=== PATIENT | male | born 1975 | race Caucasian/White ===

== ENCOUNTER 2021-07-01 11:23 | Emergency (ER) | payer MEDICAID, SELFPAY ==
[2021-07-01 11:24] VITALS: BP 132/93; PULSE 82; RESP 16; TEMP 36.7; TEMP 36.8; O2SAT 98; BMI 33.4
--- NOTE | 2021-07-01 11:38 | XR_ITS ---
FINAL REPORT CLINICAL HISTORY: INJURY TO HEEL FINDINGS: 3 views of the left foot were obtained. There is no acute fracture. There is dorsal dislocation of the 3rd digit at the MCP joint. There is hallux valgus deformity. The joint spaces are intact. The soft tissues are unremarkable. IMPRESSION: Dorsal dislocation of the 3rd digit at the MCP joint. Reviewed, Interpreted and Dictated by Chris Craig III, MD Transcribed by Hosea Glez Authenticated by Chris Craig III, MD on 07/01/2021 01:01:01 PM [facility]
--- NOTE | 2021-07-01 12:47 | HMH.EDUTC ---
[facility] [place] Disposition Condition on Discharge: Good Time of Disposition: 14:01 Clinical Impression: Dislocation of toe of left foot Qualifiers: Encounter type: initial encounter Qualified Code(s): S93.105A - Unspecified dislocation of left toe(s), initial encounter Disposition: Home, Self-Care Instructions: How To Perform RICE (Rest, Ice, Compress, Elevate), Dislocated Toe Additional Instructions: *weight bearing as tolerated *RICE, Rest the extremity, Ice 15-20 minutes 3-4 times daily, Compress- wear the shruthi wrap as discussed as much as possible to help reduce swelling and pain, Elevate the extremity when at rest *Post op shoe is for support and help control swelling, use it except in the shower. Be sure that is not to tight but not to loose either *Elevate when resting *Ibuprofen as directed on package every 6-8 hours as needed for pain an inflammation. If need something more can take Tylenol in between doses of Ibuprofen to help Immediately follow up with your family doctor for new or worsening of symptoms, or no noticeable improvement over the next 3-5 days Referrals: Alva Rosenberg MD [Primary Care Provider] - As needed Sahara Haider DPM [Staff Physician] - Medical Decision Making - Abebe Inquiry Pt receiving controlled substance: No Abebe was queried for this patient: No - Radiology Data #1 Image(s): Foot/Toes Image Reviewed: Yes I have reviewed radiologist's interpretation #2 Image(s): Foot/Toes (post reduction xray) Image Reviewed: Yes I reviewed the patient's radiology image Preliminary Findings: No Fracture Seen Vital Signs: 07/01/21 11:24 Temperature 98.3 F Temperature Source Oral Pulse Rate [Right Radial] 82 Respiratory Rate 16 Blood Pressure [Right Arm] 132/93 H Blood Pressure Mean [Right Arm] 106 Blood Pressure Source [Right Arm] Automatic Cuff Blood Pressure Position [Right Arm] Sitting 02 Sat by Pulse Oximetry 98 Oxygen Delivery Method Room Air Orders (Tests/Meds): ED MEDICATIONS Discontinued Medications Generic Name Dose Route Start Last Admin Trade Name Freq PRN Reason Stop Dose Admin Ketorolac Tromethamine 60 mg 07/01/21 13:14 07/01/21 13:17 Ketorolac 60mg/2ml Vial IM 07/01/21 13:15 60 mg ONCE ONE Administration ORDERS Category Date Time Status XR foot LT min 3V Stat Exams 07/01/21 13:12 Taken - Radiology Data #1 IMPRESSION: Dorsal dislocation of the 3rd digit at the MCP joint. (Babita Rodas) #2 reduced dorsal dislocation of 3rd digit at the MCP joint (Babita Rodas) [facility] [place] HPI - General Mode of Arrival: Wheelchair Source of Information: Patient Limitations: No Limitations Description of Symptoms (Recalled from Triage Doc. by RN): LEFT LATERAL FOOT PAIN AFTER STEPPING WRONG OUT OF DITCH HEENT Symptoms (Recalled from RN notes): No Resp Symptoms (Recalled from RN notes): No Skin Symptoms (Recalled from RN notes): No MS Symptoms (Recalled from RN notes): Yes Functional Status (Recalled from RN notes): N/A - History of Present Illness Provider Complaint: Patient states that he was stepping out of ditch when he bent his toes back States that ever since he has been having pain around the base of his toes and hurts when he walks or tries to bend them so he came in - Worker's Comp Is this a Worker's Comp case?: No Is this an [facility] Worker's Comp?: No Is this a [facility] Worker's Comp?: No - General Chief complaint: Extremity Injury, Lower Stated complaint: AO 06/30 lt ankle injury Time Seen by Provider: 07/01/21 12:47 - Related Data Allergies Allergy/AdvReac Type Severity Reaction Status Date / Time No Known Allergies Allergy Verified 07/01/21 13:14 [facility] History - Hepatitis A Screen Drug use history?: No High risk sexual behaviors?: No History of sexually transmitted infection?: No Currently employed?: No Childcare worker?: No Do you have indoor plumbing?: Yes Do you have electricity?: Yes I have reviewed the ghazala
--- NOTE | 2021-07-01 13:12 | XR_ITS ---
FINAL REPORT CLINICAL HISTORY: POST REDUCTION COMPARISON: Earlier the same day FINDINGS: LEFT FOOT Three views of the left foot demonstrate no acute fracture. There has been interval reduction of the 3rd metatarsal-phalangeal joint dislocation. There is hallux valgus deformity. The visualized joint spaces are normally aligned. The soft tissues are unremarkable. IMPRESSION: Interval reduction of 3rd metatarsophalangeal joint dislocation. Hallux valgus deformity. Reviewed, Interpreted and Dictated by Chris Craig III, MD Transcribed by Kami Fried Authenticated by Chris Craig III, MD on 07/01/2021 03:00:55 PM [facility]
[2021-07-01 14:06] VITALS: BP 132/93; PULSE 82; RESP 16; TEMP 36.8; O2SAT 98
== END 2021-07-01 14:06 | disposition home or self-care (01) ==
LOC: ER 11:36 → UTC 11:37
PROVIDERS: Emergency Provider Nurse Practitioner; PCP Nurse Practitioner
DX: S93.105A Unspecified dislocation of left toe(s), initial encounter (principal)
CPT/HCPCS: 28630; 73630; 96372; 99213; G0463

== ENCOUNTER → 2022-11-01 10:13 | Outpatient (CLI) | payer MEDICAID, SELFPAY ==
--- NOTE | 2022-11-01 10:19 | XR_ITS ---
FINAL REPORT CLINICAL HISTORY: Right knee pain COMPARISON: None FINDINGS: RIGHT KNEE 3 views of the right knee were obtained. There is no acute fracture or dislocation. Visualized joint spaces are normally aligned. Soft tissues are unremarkable. IMPRESSION: No acute bony abnormality. Reviewed, Interpreted and Dictated by Dany Mohamud MD Transcribed by Sweta Rosales Authenticated and [facility]
--- NOTE | 2022-11-01 10:19 | XR_ITS ---
FINAL REPORT CLINICAL HISTORY: Left foot pain COMPARISON: 07/01/2021 FINDINGS: LEFT FOOT Three views of the left foot demonstrate no acute fracture or dislocation. There is moderate hallux valgus deformity. The visualized joint spaces are normally aligned. The soft tissues are unremarkable. IMPRESSION: No acute bony abnormality. Reviewed, Interpreted and Dictated by Dany Mohamud MD Transcribed by Sweta Rosales Authenticated and [facility]
== END ==
PROVIDERS: Visit Provider Orthopaedic Surgery
DX: M79.672 Pain in left foot (principal); S93.105A Unspecified dislocation of left toe(s), initial encounter; M25.561 Pain in right knee
CPT/HCPCS: 73562; 73630

== ENCOUNTER → 2022-11-21 15:54 | Outpatient (CLI) | payer MEDICAID, SELFPAY ==
--- NOTE | 2022-11-21 15:55 | MR_ITS ---
PROCEDURE INFORMATION: Exam: MR Right Lower Extremity Joint Without Contrast, Knee Exam date and time: 11/21/2022 4:14 PM Age: 47 years old Clinical indication: Pain; Knee; Right; Additional info: RT knee pain. Pain around patella. Knee instability TECHNIQUE: Imaging protocol: Magnetic resonance imaging of the right lower extremity joint without contrast. Exam focused on the knee. COMPARISON: CR XR KNEE RT 3V 11/01/2022 10:26 AM FINDINGS: Bones/joints: A moderate joint effusion involves the knee. There is no acute fracture or dislocation. No aggressive bone lesions are present. Subchondral cystic change/edema involving the far medial aspect of the medial femoral condyle suggests overlying full-thickness cartilage loss or fissuring that is beyond the resolution of this study (series 8/image 14). There is additional grade II chondromalacia involving the medial femoral condyle. No significant cartilage damage involves the lateral compartment. There is grade I (out of IV) chondromalacia involving the patellofemoral joint. Medial meniscus: A horizontal tear involves the posterior horn of the medial meniscus. The tear extends to the inferior meniscal surface and extends into the posterior aspect of the body. Lateral meniscus: The lateral meniscus shows no evidence of tear. Anterior cruciate ligament: Increased T2 signal within the anterior cruciate ligament is consistent with mucinous degeneration. The anterior cruciate ligament fibers are intact. Posterior cruciate ligament: The posterior cruciate ligament is intact. Medial capsule and supporting structures: The medial collateral ligament is intact. Lateral capsule and supporting structures: The lateral collateral ligament complex is intact. Extensor mechanism of knee: Mild tendinosis involves the distal quadriceps tendon. There is no tear or significant tendinosis involving the patellar tendon. Soft tissues: A mild amount of edema involves the anterior knee subcutaneous fat. IMPRESSION: 1. Horizontal tear of the medial meniscus posterior horn. 2. 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 3. Grade I chondromalacia patella. 4. Mild tendinosis of the distal quadriceps tendon.
== END ==
PROVIDERS: PCP Orthopaedic Surgery; Visit Provider Orthopaedic Surgery
DX: M23.91 Unspecified internal derangement of right knee (principal); M25.561 Pain in right knee
CPT/HCPCS: 73721

== ENCOUNTER 2023-03-15 11:52 | Outpatient (CLI) | payer MEDICAID, SELFPAY ==
--- NOTE | 2023-03-15 11:53 | ECG_ITS ---
APPROVED REPORT Exam: Resting ECG HR:74 bpm ECG Measurements Heart Rate 74 AXES WI 189 P 38 QRSd 76 QRS 19 QT 361 T 48 QTc 389 Conclusion SINUS RHYTHM NORMAL ECG UNCONFIRMED REPORT Electronically signed by : Dimitri Villanueva MD 03/16/2023 20:33:21
--- NOTE | 2023-03-15 12:12 | XR_ITS ---
FINAL REPORT CLINICAL HISTORY: Pre Op, CURRENT TOBACCO USER, SOA WITH ACTIVITY COMPARISON: None FINDINGS: Two views of the chest were obtained. The heart size and pulmonary vascularity are within normal limits. The mediastinum is normal. No acute pulmonary abnormality is identified. There is no pneumothorax. The bony thorax is intact. IMPRESSION: No active cardiopulmonary disease. Reviewed, Interpreted and Dictated by Chris Craig III, MD Transcribed by Jocelyn Boudreaux Authenticated and . [facility]
[2023-03-15 12:48] LABS: Basophils # 0.1 K/mm3 (0-0.2); Eosinophils # 0.4 K/mm3 (0.0-0.4); Eosinophils % 3.9 % (0.1-12.0); Hematocrit 49.2 % (42.0-52.0); Hemoglobin 16.6 g/dL (14.1-18.0); Lymphocytes # 3.4 K/mm3 (0.7-4.5); Lymphocytes % 32.1 % (10-50); Mean Corpuscular HGB Conc 33.8 g/dL (31.8-35.4); Mean Corpuscular Hemoglobin 30.7 pg (27.0-31.2); Mean Corpuscular Volume 90.9 fl (80-94); Mean Platelet Volume 7.4 fl (7.4-10.4); Monocytes # 0.8 K/mm3 (0.1-1.0); Monocytes % 7.3 % (1.7-9.3); Neutrophils # 5.9 K/mm3 (1.8-7.8); Neutrophils % 55.7 % (37.0-80.0); Platelet Count 325 K/mm3 (142-424); Red Blood Count 5.41 M/mm3 (4.60-6.20); Red Cell Distribution Width 13.4 % (11.5-17.5); White Blood Count 10.6 K/mm3 (4.8-10.8)
[2023-03-15 13:26] LABS: Alanine Aminotransferase 33 U/L (12-78); Albumin Level 4.3 g/dl (3.5-5.0); Albumin/Globulin Ratio 1.7 (1.1-1.8); Alkaline Phosphatase 64 U/L (38-126); Anion Gap 9.4 mEq/L (5-15); Aspartate Amino Transferase 35 U/L (17-59); Bilirubin,Total 0.5 mg/dl (0.2-1.3); Blood Urea Nitrogen 7 mg/dl (9-20); Calcium 8.7 mg/dl (8.4-10.2); Carbon Dioxide 30 mmol/L (22.0-30.0); Chloride 100 mmol/L (98-107); Estimated Glomerular Filt Rate 89 ml/min (>60); GFR (African American) 108 ML/MIN (>60); Globulin 2.5 g/dL (1.3-3.2); Glucose 85 mg/dl (74-100); Potassium 4.4 mmoL/L (3.5-5.1); Sodium 135 mmol/L (136-145); Total Protein,Serum 6.8 g/dl (6.3-8.2)
== END 2023-03-15 23:59 ==
LOC: LAB 11:53
PROVIDERS: PCP Nurse Practitioner; Visit Provider Orthopaedic Surgery
DX: S83.241A Other tear of medial meniscus, current injury, right knee, initial encounter (principal); Z01.818 Encounter for other preprocedural examination; Y99.9 Unspecified external cause status
CPT/HCPCS: 36415; 71046; 80053; 85025; 93005

== ENCOUNTER 2023-03-27 07:30 | Day surgery (SDC) | payer MEDICAID, SELFPAY ==
[2023-03-23 14:09] VITALS: BMI 33.4
[2023-03-27] VITALS (9 sets, daily range): BP systolic 111–144; BP diastolic 76–94; PULSE 82–90; RESP 15–19; TEMP 36.1–36.3; O2SAT 90–99
[2023-03-27] MEDS: LACTATED RINGERS 1000ML 1,000 ML 25 ML IV (07:44)
--- NOTE | 2023-03-27 08:11 | EXP.ANES.CKL ---
[facility] Disclaimer: The information contained in this section may have been updated after the patient was seen, as this information can be updated by other users. Medical History No significant past medical history Surgical History No pertinent past surgical history Family History (Updated 03/27/23 @ 07:47 by Lissette Rapp RN) Other Family history of diabetes mellitus type II Social History Smoking Status: Never smoker alcohol intake: never substance use type: denies use current occupational status: employed Travel in the last 8 weeks: None [facility] Anesthesia Checklist Patient Identification Patient Identification: Arm Band, Family and Verbal (Name & ) Structural Data Admitted From: Home Planned Operative Procedure/s: Right Knee scope w/partial medial meniscectomy Consent for Planned Operative Procedure(s) Verified: Yes Verified Documents: Surgical Consent and History and Physical NPO Status Verified Time NPO: 22:00 Chart Verification Results Verified: CBC, BMP, ECG and Chest Xray Additional verifications Patient : No Anesthesia Reactions: No Hx Blood Transfusions: No Blood Transfusion Reaction: No Cardiovascular Assessment Heart Sounds: S1 & S2 Pulse Rhythm: Irregular Airway Assessment Mallampati Score:: Class III (Very small mouth opening) C-Spine Mobility Assessed: Yes (FROM) TMJ Mobility Assessed: Yes Dentition: Dentures-good fit Neurological Assessment Level of Consciousness: Awake, Alert, Appropriate and Follows Commands Hx Seizures: No Numbness or tingling in extremities: No Anesthesia Plan Anesthesia Risk discussed: Yes Anesthesia Plan: Verified ASA Class: II Anesthesia Type: General
[2023-03-27] MEDS: CEFAZOLIN SODIUM 2 GM in 0.9 % SODIUM CHLORIDE 100 ML IV (09:06)
[2023-03-27] MEDS: BUPIVACAINE 0.25% 30ML VIAL 75 MG (09:35)
[2023-03-27] MEDS: RINGERS SOLUTION,LACTATED 6,000 ML 200 ML IR (09:36)
--- NOTE | 2023-03-27 09:56 | P.OP_ITS ---
Date of procedure: 03/27/23 Pre-op Diagnosis:: Right knee medial meniscus tear Post-op Diagnosis:: Right knee medial meniscus tear with area of grade III chondromalacia medial femoral condyle Right knee large medial engaging plica Procedure performed:: Right knee arthroscopy with partial medial meniscectomy Right knee arthroscopy with debridement and excision of medial engaging plica Surgeon:: Romie Mckinnon DO TOOL DESIGNER APPRENTICE:: Other Anesthesia: GETA Estimated blood loss (mL): 0 Operative findings:: Large medial engaging plica. Macerated tear posterior horn medial meniscus. Linear stripe of grade III chondromalacia medial femoral condyle adjacent to and corresponding to site of meniscus tear Operative note:: Patient was identified preoperatively. Right knee marked with yes and my initials. Transported operative suite. Placed upon the operating bed. General anesthesia administered airway secured. Right lower extremity prepped and draped normal sterile fashion. Once prepped and draped final operative timeout performed to identify proper patient procedure and extremity. Everyone involved the case agreed. No counter indications to beginning. Did receive preoperative antibiotics. Marking pen was used to veronika the bony landmarks of the knee and standard portal sites. Esmarch was used to exsanguinate the extremity and pneumatic tourniquet was inflated to 300 mmHg. Skin knife was used to incise standard anterior lateral portal. Blunt with trocar was placed in the patellofemoral joint. This was exchanged with a camera. I swept directly into the medial joint line upon sweep into the medial joint line there was a large engaging inflamed plica. I swept into the medial joint line within the medial joint line anterior medial portal was made under direct visualization of the help with a 18-gauge spinal needle. This was exchanged with a probe. There is macerated tearing of the posterior horn of the medial meniscus. There is also a concomitant linear area of rubbing which cause grade III chondromalacia of the medial femoral condyle corresponding to the area of meniscus tear. Using combination of straight biter and sucker shaver partial medial meniscectomy was performed back to stable rim. Attention was brought to the intercondylar notch the ACL was seen and intact. Attention brought to the lateral joint line within the lateral joint line the lateral cartilage was pristine. The lateral meniscus was pristine. Tensions brought back in the patellofemoral joint within the patellofemoral joint the camera was then placed in the patellofemoral joint along with a shaver were excision of the medial engaging plica was performed. Camera was then removed the joint was drained local anesthesia infiltrated the portal sites. Skin closed with nylon stitch sterile dressing placed from toe to thigh patient waken anesthesia taken recovery in stable condition. Tourniquet time (min): 13 Condition: stable Disposition: PACU Complications:: None apparent
--- NOTE | 2023-03-27 10:07 | EXP.ANES.I ---
[facility] Anesthesia Record Part I Anesthesia Record I Intake, IV Amount: 500 Hydration: Adequate Estimated blood loss (mL): 10 Urine output (mL): 0 Blood Products used (#): none Blood Pressure: 122/76 SaO2: 90 Pulse Rate: 90 Airway Patency: Patent Respiratory Rate: 18 Temperature: 97.0 F Patient is:: Drowsy, Nasal O2 (4L/min to oral airway), Oral/Nasal airway (#9.0) and Stable Stable to PACU at:: 10:01
--- NOTE | 2023-03-28 08:02 | EXP.ANES.II ---
[facility] Anesthesia Record Part II Anesthesia Record Part II Discharge Time: 10:26 Destination: Surgical Day Care (OP Surgery) PACU nurse assessment reviewed?: Yes Patient Condition:: Good Anesthesia Complications:: None Swallowing reflex intact?: Yes Airway Patency: Patent Cyanosis?: No Blood Pressure: 129/88 SaO2: 99 Respiratory Rate: 17 Pulse Rate: 82 Temperature: 97.4 F Mental Status: Alert & Oriented Pain level:: 0 Nausea and/or vomitting:: None Intake, IV Amount: 0 Hydration: Adequate
[2023-03-28 08:03] VITALS: BP 129/88; PULSE 82; RESP 17; TEMP 36.3; O2SAT 99
== END 2023-03-27 10:53 | disposition home or self-care (01) ==
PROVIDERS: PCP Nurse Practitioner; Visit Provider Orthopaedic Surgery
PROC: (CPT 29870; principal; 2023-03-27 09:15)
DX: S83.241A Other tear of medial meniscus, current injury, right knee, initial encounter (principal); M67.51 Plica syndrome, right knee; M94.261 Chondromalacia, right knee
CPT/HCPCS: 29881; 96374; J2405

== ENCOUNTER 2023-05-17 13:16 | Outpatient (CLI) | payer MEDICAID, SELFPAY ==
--- NOTE | 2023-05-17 13:19 | XR_ITS ---
FINAL REPORT CLINICAL HISTORY: right foot pain COMPARISON: None FINDINGS: RIGHT FOOT: Three views of the right foot were obtained. There is no acute fracture or dislocation. Hallux valgus deformity is noted. There is mild degenerative change. There is a pes planus deformity. There is no soft tissue abnormality. IMPRESSION: Degenerative changes without acute bony abnormality. Reviewed, Interpreted and Dictated by Chris Craig III, MD Transcribed by Sweta Rosales Authenticated and [facility]
--- NOTE | 2023-05-17 13:19 | XR_ITS ---
FINAL REPORT CLINICAL HISTORY: left foot pain worse than right COMPARISON: None FINDINGS: LEFT FOOT: Three views of the left foot were obtained. There is no acute fracture or dislocation. There is hallux valgus deformity. Mild degenerative changes are noted. There is pes planus deformity. There is no soft tissue abnormality. IMPRESSION: Degenerative changes without acute bony abnormality. Reviewed, Interpreted and Dictated by Chris Craig III, MD Transcribed by Sweta Rosales Authenticated and [facility]
== END 2023-05-17 23:59 ==
LOC: RAD 13:16
PROVIDERS: Visit Provider Podiatrist
DX: M79.672 Pain in left foot (principal); M79.671 Pain in right foot
CPT/HCPCS: 73630

== ENCOUNTER 2023-06-20 11:00 | Outpatient (RCR) | payer MEDICAID, SELFPAY ==
--- NOTE | 2023-05-22 12:13 | HMH.PTOPEV ---
PT Outpatient Evaluation Rehab PT Outpatient Evaluation Start: 05/22/23 09:56 Freq: Status: Active Protocol: Document 05/22/23 09:56 JESS (Rec: 05/22/23 10:48 JESS [email or web address]) E-signed By Afsaneh Morrell PT Outpatient Therapy Subjective History Subjective History This is initial evaluation for 48 y/o male who presents s/p R knee scope surgery on . Since the surgery, pt reports he had been performing exercises at home. Pt reports his doctor wants more strengthening in the quad and more knee extension. Pt reports he goes to see his chick sexer for a concern of a bunion on his left foot which makes walking more difficult. Pt reports minimal-no R knee pain at rest. Pt reports his knee only hurts when he makes sudden turns. Pt is WBAT and not using AD. Pt reports some instances of R knee buckling from weakness. 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 New diagnosis of cancer in past 12 No months? Chief Complaint Swelling Level of pain today (0-10) 1 Pain scale - at its best (0-10) 0 Pain scale - at its worst (0-10) 7 Hip/Knee Eval Gait Observation General Gait Pattern Observation Antalgic Gait Assistive Device Assistive Devices None / NA Palpation Tenderness right Knee Palpation Finding Tenderness Knee Palpation Overall Comment 2/4 TTP medial/lateral joint line MMT left Hip Flexion Strength Grade 5 Normal Hip Abduction Strength Grade 5 Normal Hip Adduction Strength Grade 5 Normal Knee Extension Strength Grade 5 Normal Knee Flexion Strength Grade 5 Normal right Hip Flexion Strength Grade 4 Good Hip Abduction Strength Grade 5 Normal Hip Adduction Strength Grade 5 Normal Knee Extension Strength Grade 4- Good- Knee Flexion Strength Grade 4- Good- ROM Knee Extension Active Range of Motion ( Lacking 6 degrees degrees) Knee Flexion Active Range of Motion ( 120 degrees degrees) Effusion joint effusion knee exam standard right Mid - Patellar Circumerential Measure ( 35 cm) 5cm Distal Circumference Measure (cm) 37 Lower Extremity Functional Index Activities Today, do you or would you have any difficulty at all with: a.Any of your usual work, housework or A little bit of difficulty school activities b. Your usual hobbies, recreational or A little bit of difficulty sporting activities c. Getting into or out of the bath No difficulty d. Walking between rooms No difficulty e. Putting on your shoes or socks A little bit of difficulty f. Squatting A little bit of difficulty g. Lifting an object, like a bag of No difficulty groceries from the floor h. Performing light activities around No difficulty your home i. Performing heavy activities around A little bit of difficulty your home j. Getting into or out of a car A little bit of difficulty k. Walking 2 blocks No difficulty l. Walking a mile No difficulty m. Going up or down 10 stairs (about 1 A little bit of difficulty flight of stairs) n. Standing for 1 hour A little bit of difficulty o. Sitting for 1 hour No difficulty p. Running on even ground Moderate difficulty q. Running on uneven ground Moderate difficulty r. Making sharp turns while running fast Moderate difficulty s. Hopping Extreme difficulty or unable to perform activity t. Rolling over in bed A little bit of difficulty LEFI Score Lower Extremity Functional Index Score 61 Outpatient Therapy Assessment Impairments Problems/Impairmments Palpation Tenderness,Impaired Range of Motion,Impaired Strength,Impaired Gait Pattern ,Impaired Walking,Impaired Stair Climbing,Impaired Squatting,Impaired Work Activities,Subjective C/O Pain Prognosis Rehab Potential Good Comment Pt presents s/p R knee scope surgery (partial medial meniscectomy, with debridement and excision of medial engaging plica). Pt with minimal ROM deficits and 4-/5 R knee strength. Pt with some effusion and tender to palpate areas in R knee. Pt would benefit from skilled OP PT to address deficits. Clinical Impression Consistent with Diagnosis Yes Short Term Goals Number of Weeks 2 Decreased Palpation Tenderness Yes: 1/4 TTP joint line Increase Range of Motion Yes: Increase by 5 degrees R knee flex/extension Increase Strength Yes: 4/5 right knee without c/ o pain Patient to be Ind w/ HEP Yes Fpc Goals Number of Weeks 4 Decreased Palpation Tenderness Yes: 0/4 Increase Range of Motion Yes: WNL 0-130 Increase Strength Yes: 5/5 R knee MMT without c/ o pain Improve Gait Pattern without Assistive Yes: No antalgic gait Device Improve Tolerance to Work Activities Yes: Verbalize returning to work with min-no c/o discomfort or difficulty Improve LEFI Score Yes: =or> 70/80 Decrease Subjective C/O Pain Yes: 2/10 at worst Patient to be Ind w/ Advanced HEP Yes Outpatient Therapy Plan of Care Treatment Plan May Include Therapeutic Exercise Including Home Yes Exercise Program Manual Therapy Techniques Yes Neuromuscular Re-education Yes Therapeutic Activities to Return to Yes Previous Functional/Work Level Gait Training Yes ADL/Self Care Education Yes Thermal Modalities Yes Electrical Stimulation Yes Ultrasound/Phonophoresis Yes Iontophoresis Yes Massage Yes Group Therapy for Medicare Yes Eval/Re-Eval Yes Frequency Times per week 1-2 times Duration Number of Weeks 4 weeks Addendums This patient is a candidate for social No or vocational rehab? Patient/Guardian verbally acknowledges Yes understanding of treatment program and consents to further treatment? Patient/Guardian verbally acknowledges Yes understanding of diagnosis, prognosis and goals for treatment? Eval Complexity PT Charges 40799 - Moderate Complexity Shoulder/Elbow Eval Shoulder Objective Measurements Elbow Objective Measurements PHYSICIAN CERTIFICATION: I certify the specified therapy services for Ortiz Harvey are required, authorized, and reviewed every 30 days.
--- NOTE | 2023-06-20 11:42 | HMH.RHREAS ---
Rehab Reassessment Rehab OP Re-assessment Start: 05/22/23 09:56 Freq: Status: Active Protocol: Document 06/20/23 09:34 JSES (Rec: 06/20/23 11:40 JESS [id number]) E-signed By Afsaneh Morrell, PT Lower Extremity Functional Index Activities Today, do you or would you have any difficulty at all with: a.Any of your usual work, housework or No difficulty school activities b. Your usual hobbies, recreational or No difficulty sporting activities c. Getting into or out of the bath No difficulty d. Walking between rooms No difficulty e. Putting on your shoes or socks No difficulty f. Squatting No difficulty g. Lifting an object, like a bag of No difficulty groceries from the floor h. Performing light activities around No difficulty your home i. Performing heavy activities around No difficulty your home j. Getting into or out of a car No difficulty k. Walking 2 blocks No difficulty l. Walking a mile No difficulty m. Going up or down 10 stairs (about 1 No difficulty flight of stairs) n. Standing for 1 hour A little bit of difficulty o. Sitting for 1 hour No difficulty p. Running on even ground No difficulty q. Running on uneven ground Moderate difficulty r. Making sharp turns while running fast No difficulty s. Hopping A little bit of difficulty t. Rolling over in bed No difficulty LEFI Score Lower Extremity Functional Index Score 76 Rehab Re-assessment Subjective Subjective Pt reports he feels 98% better since initial evaluation. 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 Pt reports he is ready to d/c from physical therapy. Objective Objective Notes MMT: 5/5 R knee AROM: Full ROM 0-135 Effusion: Minimal-no swelling present Palpation: 1/ TTP medial knee at site of scar. Assessment Progress Assessment Progressing as Expected Assessment Notes This is a reassessment for 48 y/o male, Ortiz Harvey, who presents s/p R knee scope surgery (partial medial meniscectomy, with debridement and excision of medial engaging plica) on 03/27/23 . Since IE, pt has been seen for 4 visits that have consisted of modalities prn, education, and therapeutic exercises focusing on knee ROM and strength. Pt with good attendance to scheduled PT visits and reports adherence to HEP. Since IE, pt with improvements in ROM and strength. Pt with minimal remaining pain and swelling and has returned to performing farm duties. Pt has met his STGs and LTGs (with exception of TTP). PT recommending D/C d /t met goals. Patient goals met ST/4 LT/8 (Still TTP medial knee over scar) Plan Plan D/C patient from OP PT services Time and Billing Re-Eval Time 10 Re-Eval Billing Units 1 PHYSICIAN CERTIFICATION: I certify the specified therapy services for Ortiz Harvey are required, authorized, and reviewed every 30 days.
== END 2023-06-20 12:00 | disposition home or self-care (01) ==
LOC: PT 11:00
PROVIDERS: Visit Provider Orthopaedic Surgery
DX: M25.561 Pain in right knee (principal); Z47.1 Aftercare following joint replacement surgery
CPT/HCPCS: 97010; 97014; 97110; 97163; 97164; 97530; G0283

== ENCOUNTER 2023-10-29 20:14 | Emergency (ER) | payer MEDICAID, SELFPAY ==
[2023-10-29 20:15] VITALS: BP 154/94; PULSE 87; RESP 16; TEMP 37.1; O2SAT 98; BMI 34.9
--- NOTE | 2023-10-29 20:20 | HMH.EDGENADL ---
Discharge Plan Disposition Patient Disposition: Xfer Short-Term Hosp Condition: Serious Prescriptions Prescriptions: No Action meloxicam 7.5 mg tablet 7.5 mg PO DAILY Qty: 30 2RF diclofenac sodium [Voltaren Arthritis Pain] 1 % gel 4 g topical QID PRN (Reason: pain) Qty: 100 2RF Rx Instructions: apply to single knee, ankle, foot; for foot includes sole/toes/top of foot Referrals Follow up/Referrals: Sangeeta Martin APRN [Primary Care Provider] - See instructions Activity Restrictions/Add. Instructions Additional Instructions/Restrictions: Please go to the [facility] emergency department directly from here. You have been accepted by Dr. Ramsey for further evaluation and care. Clinical Impressions Clinical Impression: Testicular abscess Stand Alone Forms Stand Alone Forms: Transfer Record - ED Instructions Patient Instructions: DI for Acute Abdominal Pain Print Language Print Language: [place] Citizen Discharge ED Provider: Brian Valdovinos General Adult HPI <MARIANELA Del Rosario - Last Filed: 10/30/23 00:06> General Chief complaint: Abdominal Pain Stated complaint: right abdominal pain Time Seen by Provider: 10/29/23 20:20 History of Present Illness HPI narrative: Patient presents for evaluation of left lower quadrant/inguinal/groin pain without any known trauma. Patient states that he began having left lower abdominal inguinal groin pain since yesterday. He began abruptly without any known trauma. His patient states that it is positional worse with walking better with lying flat. He has never had abdominal surgery. He is passing gas today and last had a bowel movement yesterday. Related Data Previous Rx's ?Medication ?Instructions ?Recorded diclofenac sodium 1 % topical gel 4 g topical QID PRN pain #100 grams 05/30/23 (Voltaren Arthritis Pain) meloxicam 7.5 mg tablet 7.5 mg PO DAILY pain #30 tabs 05/30/23 Allergies Allergy/AdvReac Type Severity Reaction Status Date / Time No Known Allergies Allergy Verified 06/22/23 09:54 PFS <MARIANELA Del Rosario - Last Filed: 10/30/23 00:06> [facility] Disclaimer: The information contained in this section may have been updated after the patient was seen, as this information can be updated by other users. Medical History No significant past medical history Surgical History No pertinent past surgical history Family History Other Family history of diabetes mellitus type II Social History Smoking Status: Current every day smoker alcohol intake: never substance use type: denies use current occupational status: employed Travel in the last 8 weeks: None <MARIANELA Del Rosario - Last Filed: 10/30/23 00:06> ROS Obtained: Yes Systems reviewed as appropriate & no additional complaints except as documented Physical Exam <MARIANELA Del Rosario - Last Filed: 10/30/23 00:06> General General appearance: alert and in no apparent distress Respiratory Respiratory exam: Present normal lung sounds bilaterally Cardiovascular Cardiovascular exam: Present regular rate and normal rhythm Abdominal Exam Abdominal exam: Present soft, tenderness (Patient is tender to palpation in the very right lower quadrant without rebound or guarding or rigidity.) and normal bowel sounds; Absent guarding or rebound exam: Present normal inspection, testicular tenderness (Exquisite right testicle tenderness but no palpable mass however I cannot get a decent exam due to the patient's discomfort) and normal testicular lie; Absent scrotal swelling Neurological Exam Neurological exam: Present alert and oriented X3 Medical Decision Making <MARIANELA Del Rosario - Last Filed: 10/30/23 00:06> Medical Records Medical records reviewed: Yes I reviewed the patient's medical records. Abebe Inquiry Pt receiving controlled substance: No Vital Signs: 10/29/23 20:15 10/29/23 20:24 10/29/23 22:26 Temperature 98.7 F Temperature Source Oral Oral Pulse Rate 92 H 79 Pulse Rate [Left] 87 Respiratory Rate 16 16 Blood Pressure 149/86 H Blood Pressure [Right Arm] 154/94 H Blood Pressure Mean 107 Blood Pressure Mean [Right Arm] 114 Blood Pressure Source [Right Arm] Automatic Cuff Blood Pressure Position [Right Arm] Sitting 02 Sat by Pulse Oximetry 98 98 98 Oxygen Delivery Method Room Air Room Air 10/29/23 22:30 10/29/23 23:00 10/30/23 00:22 Temperature 98.3 F Temperature Source Oral Pulse Rate 82 81 86 Pulse Rate [Left] Respiratory Rate 18 Blood Pressure 126/96 H 125/85 141/89 H Blood Pressure [Right Arm] Blood Pressure Mean 105 98 Blood Pressure Mean [Right Arm] Blood Pressure Source [Right Arm] Blood Pressure Position [Right Arm] 02 Sat by Pulse Oximetry 97 96 Oxygen Delivery Method Room Air Lab Data Lab results reviewed: Yes I reviewed the patient's lab results. Lab Results 10/29/23 20:35: WBC 17.1 H, RBC 5.51, Hgb 16.6, Hct 51.3, MCV 93.0, MCH 30.2, MCHC 32.4, RDW 13.8, Plt Count 327, MPV 7.6, Neut % (Auto) 66.4, Lymph % (Auto) 23.5, Mineral % (Auto) 6.0, Eos % (Auto) 2.9, Baso % (Auto) 1.3, Neut # (Auto) 11.4 H, Lymph # (Auto) 4.0, Mineral # (Auto) 1.0, Eos # (Auto) 0.5 H, Baso # (Auto) 0.2, Total Counted 100, Neutrophils % (Manual) 68, Lymphocytes % (Manual) 22, Monocytes % (Manual) 8, Eosinophils % (Manual) 2, Platelet Estimate Normal, RBC Morphology Normal, Sodium 136, Potassium 4.0, Chloride 101, Carbon Dioxide 30, Anion Gap 9.0, BUN 8 L, Creatinine 1.00, Estimated Creat Clear 130, Estimated GFR 79, Est GFR ( Amer) 96, Glucose 96, Lactate 1.2, Calcium 8.9, Total Bilirubin 0.6, AST 35, ALT 36, Alkaline Phosphatase 81, Total Protein 7.6, Albumin 4.4, Globulin 3.2, Albumin/Globulin Ratio 1.4 10/29/23 22:29: Urine Color Yellow, Urine Appearance Clear, Urine pH 6.5, Ur Specific [place] 1.010, Urine Protein Negative, Urine Glucose (UA) Negative, Urine Ketones Negative, Urine Blood Trace-i, Urine Nitrate Negative, Urine Bilirubin Negative, Urine Urobilinogen 0.2, Ur Leukocyte Esterase Negative, Urine RBC 3-5, Urine WBC 3-5, Ur Squamous Epith Cells None, Urine Bacteria Trace 10/29/23 20:35 10/29/23 20:35 Orders (Tests/Meds): ED MEDICATIONS Discontinued Medications Generic Name Dose Route Start Last Admin Trade Name Ricoq PRN Reason Stop Dose Admin Acetaminophen 1,000 mg 10/29/23 20:47 10/29/23 21:26 Acetaminophen 1,000mg/100ml Vial IV 10/29/23 20:48 1,000 mg ONCE ONE Administration Lactated Ringer's 1,000 mls @ 999 mls/hr 10/29/23 20:47 10/29/23 21:26 Lactated Ringer's 1000 Ml Bag IV 10/29/23 21:47 999 mls/hr .Q1H1M ONE Administration Ceftriaxone Sodium 1 gm/ 50 mls @ 100 mls/hr 10/29/23 23:15 10/29/23 23:14 Sodium Chloride IV 11/08/23 23:14 100 mls/hr Q24H OSIRIS Administration Iopamidol 75 ml 10/29/23 21:49 10/29/23 21:50 Iopamidol-370 (76%);100ml Bottle IV 10/29/23 21:50 75 ml ONCE ONE Administration Ondansetron HCl 4 mg 10/29/23 20:47 10/29/23 21:26 Ondansetron 4mg/2ml Vial IV 10/29/23 20:48 4 mg ONCE ONE Administration Sodium Chloride 10 ml 10/29/23 21:49 10/29/23 21:50 Sodium Chloride 0.9% 10ml Syr (Rad Only) IV 11/28/23 21:48 10 ml NEEDED PRN Administration Maintain IV Site ORDERS Category Date Time Status CT abdomen pelvis w con Stat Cat Scan 10/29/23 20:47 Completed CBC w/Auto Diff [Complete Blood Count Auto Diff] Stat Lab 10/29/23 20:35 Completed CMP [Comprehensive Metabolic Panel] Stat Lab 10/29/23 20:35 Completed Lactic Acid Stat Lab 10/29/23 20:35 Completed UA [Urinalysis and Microscopic] Stat Lab 10/29/23 22:29 Completed Testicular US [US Testicular] Stat Ultrasound 10/29/23 20:49 Completed Medical Decision Narrative: In summary patient is a 48-year-old male who presents to the emergency department for evaluation of right lower quadrant groin and testicle pain. Patient is hemodynamically stable upon arrival, afebrile. Physical exam is remarkable for mild abdominal tenderness to palpation in the right lower quadrant however patient is exquisitely tender in the right testicle however I am unable to get a good exam due to the patient's discomfort. There is no visible swelling or suggestion of bowel loops to my limited exam. Bowel sounds are normal active. Differential diagnosis includes hernia versus torsion versus epididymitis versus appendicitis etc. Initial workup will be conducted with hematologic labs CT scan abdomen pelvis testicular ultrasound. Initial interventions include crystalloid bolus Toradol Tylenol. Initial workup reviewed by me shows that he does have an elevated white count the remainder of his hematologic labs are otherwise nonactionable, his urinalysis is bland, CT scan of the abdomen pelvis showed no acute abnormalities however his testicular ultrasound showed a right testicular abscess. Given this I have reached out to the [facility] and had an interactive discussion with Dr. Ramsey outpatient management and the patient has been accepted at [place] emergency department for further evaluation and care. <Brian Valdovinos MD - Last Filed: 10/31/23 10:30> Vital Signs: 10/29/23 20:15 10/29/23 20:24 10/29/23 22:26 Temperature 98.7 F Temperature Source Oral Oral Pulse Rate 92 H 79 Pulse Rate [Left] 87 Respiratory Rate 16 16 Blood Pressure 149/86 H Blood Pressure [Right Arm] 154/94 H Blood Pressure Mean 107 Blood Pressure Mean [Right Arm] 114 Blood Pressure Source [Right Arm] Automatic Cuff Blood Pressure Position [Right Arm] Sitting 02 Sat by Pulse Oximetry 98 98 98 Oxygen Delivery Method Room Air Room Air 10/29/23 22:30 10/29/23 23:00 10/30/23 00:22 Temperature 98.3 F Temperature Source Oral Pulse Rate 82 81 86 Pulse Rate [Left] Respiratory Rate 18 Blood Pressure 126/96 H 125/85 141/89 H Blood Pressure [Right Arm] Blood Pressure Mean 105 98 Blood Pressure Mean [Right Arm] Blood Pressure Source [Right Arm] Blood Pressure Position [Right Arm] 02 Sat by Pulse Oximetry 97 96 Oxygen Delivery Method Room Air Lab Data Lab Results 10/29/23 20:35: WBC 17.1 H, RBC 5.51, Hgb 16.6, Hct 51.3, MCV 93.0, MCH 30.2, MCHC 32.4, RDW 13.8, Plt Count 327, MPV 7.6, Neut % (Auto) 66.4, Lymph % (Auto) 23.5, Mineral % (Auto) 6.0, Eos % (Auto) 2.9, Baso % (Auto) 1.3, Neut # (Auto) 11.4 H, Lymph # (Auto) 4.0, Mineral # (Auto) 1.0, Eos # (Auto) 0.5 H, Baso # (Auto) 0.2, Total Counted 100, Neutrophils % (Manual) 68, Lymphocytes % (Manual) 22, Monocytes % (Manual) 8, Eosinophils % (Manual) 2, Platelet Estimate Normal, RBC Morphology Normal, Sodium 136, Potassium 4.0, Chloride 101, Carbon Dioxide 30, Anion Gap 9.0, BUN 8 L, Creatinine 1.00, Estimated Creat Clear 130, Estimated GFR 79, Est GFR ( Amer) 96, Glucose 96, Lactate 1.2, Calcium 8.9, Total Bilirubin 0.6, AST 35, ALT 36, Alkaline Phosphatase 81, Total Protein 7.6, Albumin 4.4, Globulin 3.2, Albumin/Globulin Ratio 1.4 10/29/23 22:29: Urine Color Yellow, Urine Appearance Clear, Urine pH 6.5, Ur Specific [place] 1.010, Urine Protein Negative, Urine Glucose (UA) Negative, Urine Ketones Negative, Urine Blood Trace-i, Urine Nitrate Negative, Urine Bilirubin Negative, Urine Urobilinogen 0.2, Ur Leukocyte Esterase Negative, Urine RBC 3-5, Urine WBC 3-5, Ur Squamous Epith Cells None, Urine Bacteria Trace Orders (Tests/Meds): ED MEDICATIONS Discontinued Medications Generic Name Dose Route Start Last Admin Trade Name Neptali PRN Reason Stop Dose Admin Acetaminophen 1,000 mg 10/29/23 20:47 10/29/23 21:26 Acetaminophen 1,000mg/100ml Vial IV 10/29/23 20:48 1,000 mg ONCE ONE Administration Lactated Ringer's 1,000 mls @ 999 mls/hr 10/29/23 20:47 10/29/23 21:26 Lactated Ringer's 1000 Ml Bag IV 10/29/23 21:47 999 mls/hr .Q1H1M ONE Administration Ceftriaxone Sodium 1 gm/ 50 mls @ 100 mls/hr 10/29/23 23:15 10/29/23 23:14 Sodium Chloride IV 11/08/23 23:14 100 mls/hr Q24H OSIRIS Administration Iopamidol 75 ml 10/29/23 21:49 10/29/23 21:50 Iopamidol-370 (76%);100ml Bottle IV 10/29/23 21:50 75 ml ONCE ONE Administration Ondansetron HCl 4 mg 10/29/23 20:47 10/29/23 21:26 Ondansetron 4mg/2ml Vial IV 10/29/23 20:48 4 mg ONCE ONE Administration Sodium Chloride 10 ml 10/29/23 21:49 10/29/23 21:50 Sodium Chloride 0.9% 10ml Syr (Rad Only) IV 11/28/23 21:48 10 ml NEEDED PRN Administration Maintain IV Site ORDERS Category Date Time Status CT abdomen pelvis w con Stat Cat Scan 10/29/23 20:47 Completed CBC w/Auto Diff [Complete Blood Count Auto Diff] Stat Lab 10/29/23 20:35 Completed CMP [Comprehensive Metabolic Panel] Stat Lab 10/29/23 20:35 Completed Lactic Acid Stat Lab 10/29/23 20:35 Completed UA [Urinalysis and Microscopic] Stat Lab 10/29/23 22:29 Completed Testicular US [US Testicular] Stat Ultrasound 10/29/23 20:49 Completed Medical Decision Narrative: In summary patient is a 48-year-old male who presents to the emergency department for evaluation of right lower quadrant groin and testicle pain. Patient is hemodynamically stable upon arrival, afebrile. Physical exam is remarkable for mild abdominal tenderness to palpation in the right lower quadrant however patient is exquisitely tender in the right testicle however I am unable to get a good exam due to the patient's discomfort. There is no visible swelling or suggestion of bowel loops to my limited exam. Bowel sounds are normal active. Differential diagnosis includes hernia versus torsion versus epididymitis versus appendicitis etc. Initial workup will be conducted with hematologic labs CT scan abdomen pelvis testicular ultrasound. Initial interventions include crystalloid bolus Toradol Tylenol. Initial workup reviewed by me shows that he does have an elevated white count the remainder of his hematologic labs are otherwise nonactionable, his urinalysis is bland, CT scan of the abdomen pelvis showed no acute abnormalities however his testicular ultrasound showed a right testicular abscess. Given this I have reached out to the [facility] and had an interactive discussion with Dr. Ramsey outpatient management and the patient has been accepted at [place] emergency department for further evaluation and care. I was consulted by the CHELO, and we discussed the complexity of the problems being addressed. I approved the treatment and management plan for this patient's care in the Emergency Department, thus performing a substantive portion of the medical decision making. Brian Valdovinos MD Critical Care <MARIANELA Del Rosario - Last Filed: 10/30/23 00:06> Critical Care Time Critical Care Time: No
[2023-10-29 20:24] VITALS: PULSE 92; RESP 16; O2SAT 98
--- NOTE | 2023-10-29 20:47 | CT_ITS ---
PROCEDURE INFORMATION: Exam: CT Abdomen And Pelvis With Contrast Exam date and time: 10/29/2023 9:44 PM Age: 48 years old Clinical indication: Abdominal pain; Additional info: Right lower quadrant abdominal pain TECHNIQUE: Imaging protocol: Computed tomography of the abdomen and pelvis with contrast. Radiation optimization: All CT scans at this facility use at least one of these dose optimization techniques: automated exposure control; mA and/or kV adjustment per patient size (includes targeted exams where dose is matched to clinical indication); or iterative reconstruction. Contrast material: ISOVUE; Contrast volume: 75 ml; Contrast route: IV; COMPARISON: CR XR CHEST 2V 03/15/2023 12:26 PM FINDINGS: Liver: Normal. No mass. Gallbladder and biliary ducts: Normal. No calcified stones. No ductal dilation. Pancreas: Normal. No ductal dilation. Spleen: Normal. No splenomegaly. Adrenal glands: Normal. No mass. Kidneys and ureters: Normal. No hydronephrosis. Stomach and bowel: Moderate sigmoid diverticulosis. No bowel wall thickening or evidence of bowel obstruction. Appendix: The appendix is visualized and appears normal. Intraperitoneal space: Unremarkable. No free air. No significant fluid collection. Vasculature: Mild atherosclerotic calcification throughout the aorta and iliac arteries. No evidence of aneurysm or dissection. Lymph nodes: Unremarkable. No enlarged lymph nodes. Urinary bladder: Unremarkable as visualized. Reproductive: Unremarkable as visualized. Bones/joints: [id number] degenerative disc changes throughout the lower spine. No vertebral body compression or acute fracture. Mild thoracolumbar scoliosis. Soft tissues: Unremarkable. IMPRESSION: No acute abnormality.
--- NOTE | 2023-10-29 20:49 | US_ITS ---
PROCEDURE INFORMATION: Exam: US Scrotum Exam date and time: 10/29/2023 9:53 PM Age: 48 years old Clinical indication: Scrotum pain; Additional info: Right testicle pain x 2 days TECHNIQUE: Imaging protocol: Real-time ultrasound of the scrotum and contents with color Doppler and image documentation. COMPARISON: CT ABDOMEN PELVIS W CON 10/29/2023 9:44 PM FINDINGS: Right testicle: There is diffuse increased vascularity throughout the right testicle with heterogeneous echogenicity, compatible with acute orchitis. A rounded area of absent vascularity and relative hypoechoic signal measuring approximately 1.7 cm in greatest diameter is present in the upper portion of the right testicle. In the setting of findings of orchitis, this is most concerning for testicular abscess. Left testicle: Normal. No mass. Normal color Doppler and arterial waveforms. No torsion. Epididymides: Right epididymal head is mildly enlarged and heterogeneous concerning for epididymitis. Left epididymis appears normal. Extratesticular spaces: Small right hydrocele. Scrotum/soft tissues: Normal. IMPRESSION: Significant findings of right orchitis with probable 1.7 cm abscess in the superior right testicle. Equivocal findings of right epididymitis. Follow-up ultrasound after appropriate therapy to ensure resolution of abnormal imaging findings in the right testicle is indicated to exclude underlying neoplastic lesion.
[2023-10-29 20:59] LABS: Basophils # 0.2 K/mm3 (0-0.2); Basophils % 1.3 % (0.1-2.0); Eosinophils # 0.5 K/mm3 (0.0-0.4); Eosinophils % 2.9 % (0.1-12.0); Hematocrit 51.3 % (42.0-52.0); Hemoglobin 16.6 g/dL (14.1-18.0); Lymphocytes % 23.5 % (10-50); Mean Corpuscular HGB Conc 32.4 g/dL (31.8-35.4); Mean Corpuscular Hemoglobin 30.2 pg (27.0-31.2); Mean Platelet Volume 7.6 fl (7.4-10.4); Neutrophils # 11.4 K/mm3 (1.8-7.8); Neutrophils % 66.4 % (37.0-80.0); Platelet Count 327 K/mm3 (142-424); Red Blood Count 5.51 M/mm3 (4.60-6.20); Red Cell Distribution Width 13.8 % (11.5-17.5); White Blood Count 17.1 K/mm3 (4.8-10.8)
[2023-10-29 21:01] LABS: Chloride 101 mmol/L (98-107)
[2023-10-29 21:02] LABS: Albumin Level 4.4 g/dl (3.5-5.0); MANUAL DIFFERENTIAL MANUAL DIFFERENTIAL (MANUAL DIFF); Sodium 136 mmol/L (136-145)
[2023-10-29 21:04] LABS: Alanine Aminotransferase 36 U/L (12-78); Albumin/Globulin Ratio 1.4 (1.1-1.8); Alkaline Phosphatase 81 U/L (38-126); Aspartate Amino Transferase 35 U/L (17-59); Bilirubin,Total 0.6 mg/dl (0.2-1.3); Blood Urea Nitrogen 8 mg/dl (9-20); Carbon Dioxide 30 mmol/L (22.0-30.0); Creatinine Clearance Estimated 130 mL/min (50-200); Estimated Glomerular Filt Rate 79 ml/min (>60); GFR (African American) 96 ML/MIN (>60); Globulin 3.2 g/dL (1.3-3.2); Lactic Acid 1.2 mmol/L (0.7-2.1); Total Protein,Serum 7.6 g/dl (6.3-8.2)
[2023-10-29 21:05] LABS: Calcium 8.9 mg/dl (8.4-10.2); Glucose 96 mg/dl (74-100)
[2023-10-29 21:07] LABS: Eosinophils % 2 % (0-3); Lymphocytes % 22 % (10-50); Monocytes % 8 % (2-9); Neutrophils % 68 % (42-76); Platelet Estimate Normal; RBC Morphology Normal; Total Cells Counted 100
[2023-10-29] MEDS: ACETAMINOPHEN 1,000MG/100ML VIAL 1000 MG IV (21:26)
[2023-10-29] MEDS: ONDANSETRON 4MG/2ML VIAL 4 MG IV (21:26)
[2023-10-29] MEDS: LACTATED RINGERS 1000ML 1,000 ML 999 ML IV (21:26)
[2023-10-29] MEDS: SODIUM CHLORIDE 0.9% 10ML SYR (RAD ONLY) 10 ML IV (21:50)
[2023-10-29] MEDS: IOPAMIDOL-370 (76%);100ML BOTTLE 75 ML IV (21:50)
[2023-10-29 22:26] VITALS: BP 149/86; PULSE 79; O2SAT 98
[2023-10-29 22:30] VITALS: BP 126/96; PULSE 82; O2SAT 97
[2023-10-29 22:32] LABS: Appearance,Urine CLEAR (Clear); Bilirubin,Urine Negative (Negative); Blood, Urine TRACE-I (Negative); Color,Urine YELLOW (Yellow); Glucose,Urine (UA) Negative (Negative); Ketones,Urine Negative (Negative); Leukocyte Esterase,Urine Negative (Negative); Microscopic, Urine URINE MICROSCOPIC (MICROSCOPIC); Nitrate,Urine Negative (Negative); PH,Urine 6.5 (5.0-8.5); Protein,Urine Negative (Negative); Urobilinogen,Urine 0.2 EU/dl (0.2)
[2023-10-29 22:52] LABS: Bacteria,Urine Trace /lpf
[2023-10-29 23:00] VITALS: BP 125/85; PULSE 81; O2SAT 96
--- NOTE | 2023-10-29 23:04 | PC.NURSE ---
MD's notified for transfer to their facility, awaiting return call. Images to be power shared and a disc burnt
[2023-10-29] MEDS: CEFTRIAXONE 1 GM 1 GM in 0.9 % SODIUM CHLORIDE 50 ML IV (23:14)
--- NOTE | 2023-10-30 00:02 | PC.NURSE ---
Per Kiah BEAR, Pt is accepted to [facility] ED by Dr Ramsey. Pt is going POV
[2023-10-30 00:22] VITALS: BP 141/89; PULSE 86; RESP 18; TEMP 36.8; O2SAT 99
== END 2023-10-30 00:23 | disposition short-term general hospital (02) ==
PROVIDERS: Physician Assistant; Emergency Provider Emergency Medicine; PCP Nurse Practitioner
DX: N45.4 Abscess of epididymis or testis (principal); R10.2 Pelvic and perineal pain; R10.32 Left lower quadrant pain
CPT/HCPCS: 74177; 76870; 80053; 81001; 83605; 85007; 85025; 85027; 96361; 96365; 96375; 99285; J0131; J0696; J2405; J7120; Q9967

== ENCOUNTER 2024-01-04 07:23 | Outpatient (CLI) | payer MEDICAID, SELFPAY ==
--- NOTE | 2024-01-04 07:24 | MR_ITS ---
PROCEDURE INFORMATION: Exam: MR Left Lower Extremity Other Than Joint Without Contrast; Foot Exam date and time: 01/04/2024 7:26 AM Age: 48 years old Clinical indication: Pain; Foot; Left; Additional info: Evaluate for surgical planning. Pain on plantar surface of toes. TECHNIQUE: Imaging protocol: Magnetic resonance imaging of the left lower extremity without contrast. Exam focused on the foot. COMPARISON: CR XR FOOT WT BEARING LT 3V 05/17/2023 1:33 PM FINDINGS: Bones/joints: No acute fracture or malalignment. Moderate hallux valgus. Mild-moderate degenerative change of the 1st MTP joint. Scattered mild degenerative change in the remainder of foot. Trace free fluid around the MTP joint. There is an osteochondral lesion at the mid aspect of the medial talar dome measuring approximately 6 x 6 mm, without significant articular surface depression. Note made of trace surrounding cleft of fluid, suggestive of instability. Recommend correlation. No worrisome lytic or blastic osseous lesion. Trace subchondral cystic change in the calcaneus (anterior plantar to the subtalar joint) most consistent with degenerative change. LIGAMENTS: Lisfranc ligament: Unremarkable. No evidence of tear. TENDONS: Flexor tendons of foot: Unremarkable. No evidence of tear. Tibialis posterior tendon: Unremarkable as visualized. Peroneal tendons: Unremarkable as visualized. Extensor tendons of foot: Unremarkable. No evidence of tear. Tibialis anterior tendon: Unremarkable as visualized. Tarsal canal (Sinus tarsi): Unremarkable. Tarsal tunnel: Unremarkable. Soft tissues: Unremarkable. Plantar fascia: Unremarkable as visualized. IMPRESSION: 1. Osteochondral lesion at the medial talar dome measuring approximately 6 x 6 mm, without significant articular surface depression. Note made of trace surrounding cleft of fluid, suggestive of instability. Recommend correlation. 2. No acute fracture or malalignment. No evidence of osteomyelitis. 3. Moderate hallux valgus. Mild-moderate degenerative change of the 1st MTP joint. Scattered mild degenerative change in the remainder of foot.
== END 2024-01-04 23:59 | disposition home or self-care (01) ==
LOC: RAD 07:24
PROVIDERS: Visit Provider Podiatrist
DX: M77.52 Other enthesopathy of left foot and ankle (principal); M77.42 Metatarsalgia, left foot; M20.12 Hallux valgus (acquired), left foot; M21.42 Flat foot [pes planus] (acquired), left foot
CPT/HCPCS: 73718

== ENCOUNTER 2024-01-22 12:32 | Outpatient (CLI) | payer MEDICAID, SELFPAY ==
--- NOTE | 2024-01-22 12:37 | XR_ITS ---
FINAL REPORT CLINICAL HISTORY: pre-op testing COMPARISON: None FINDINGS: Two views of the chest were obtained. The heart size and pulmonary vascularity are within normal limits. The mediastinum is normal. No acute pulmonary abnormality is identified. There is no pneumothorax. The bony thorax is intact. IMPRESSION: No active cardiopulmonary disease. Reviewed, Interpreted and Dictated by Chris Craig III, MD Transcribed by Jocelyn Boudreaux Authenticated and [facility]
--- NOTE | 2024-01-22 13:10 | ECG_ITS ---
APPROVED REPORT Exam: Resting ECG HR:75 bpm ECG Measurements Heart Rate 75 AXES CA 156 P 49 QRSd 92 QRS 12 QT 370 T 42 QTc 399 Conclusion SINUS RHYTHM LOW QRS VOLTAGE IN PRECORDIAL LEADS [QRS DEFLECTION < 1.0 mV IN CHEST LEADS] BORDERLINE ECG UNCONFIRMED REPORT Electronically signed by : Dimitri Villanueva MD 01/23/2024 17:00:56
[2024-01-22 13:17] LABS: Basophils # 0.1 K/mm3 (0-0.2); Basophils % 1.1 % (0.1-2.0); Eosinophils # 0.4 K/mm3 (0.0-0.4); Eosinophils % 3.3 % (0.1-12.0); Hematocrit 48.9 % (42.0-52.0); Hemoglobin 17.3 g/dL (14.1-18.0); Lymphocytes # 3.7 K/mm3 (0.7-4.5); Lymphocytes % 31.5 % (10-50); Mean Corpuscular HGB Conc 35.5 g/dL (31.8-35.4); Mean Corpuscular Hemoglobin 30.8 pg (27.0-31.2); Mean Corpuscular Volume 86.9 fl (80-94); Monocytes # 0.7 K/mm3 (0.1-1.0); Monocytes % 5.6 % (1.7-9.3); Neutrophils # 6.8 K/mm3 (1.8-7.8); Neutrophils % 58.5 % (37.0-80.0); Platelet Count 291 K/mm3 (142-424); Red Blood Count 5.62 M/mm3 (4.60-6.20); Red Cell Distribution Width 13.5 % (11.5-17.5); White Blood Count 11.7 K/mm3 (4.8-10.8)
[2024-01-22 13:38] LABS: Alanine Aminotransferase 38 U/L (12-78); Albumin Level 4.6 g/dl (3.5-5.0); Albumin/Globulin Ratio 1.8 (1.1-1.8); Alkaline Phosphatase 61 U/L (38-126); Anion Gap 13.7 mEq/L (5-15); Aspartate Amino Transferase 38 U/L (17-59); Bilirubin,Total 0.8 mg/dl (0.2-1.3); Blood Urea Nitrogen 6 mg/dl (9-20); Calcium 9.5 mg/dl (8.4-10.2); Carbon Dioxide 25 mmol/L (22.0-30.0); Chloride 103 mmol/L (98-107); Estimated Glomerular Filt Rate 102 ml/min (>60); GFR (African American) 124 ML/MIN (>60); Globulin 2.6 g/dL (1.3-3.2); Glucose 88 mg/dl (74-100); Potassium 4.7 mmoL/L (3.5-5.1); Sodium 137 mmol/L (136-145); Total Protein,Serum 7.2 g/dl (6.3-8.2); Uric Acid 5.8 mg/dl (3.5-8.5)
[2024-01-22 13:44] LABS: C-Reactive Protein 3.3 mg/L (0-4)
[2024-01-22 13:52] LABS: Erythrocyte Sedimentation Rate 1 mm/hr (0-15)
[2024-01-23 12:29] LABS: RA Latex Turbid. <10.0 IU/mL (<14.0)
[2024-01-24 10:26] LABS: Antinuclear Antibodies, IFA Negative (.)
[2024-01-31 11:15] LABS: Cotinine 209.4 ng/mL (.); Nicotine 14.2 ng/mL (.)
[2024-02-06 09:22] LABS: 1,25 Dihydroxy Vitamin D 55 pg/mL (.); 1,25-Dihydroxy, Vitamin D-2 <10 pg/mL (.); 1,25-Dihydroxy, Vitamin D-3 55 pg/mL (.)
== END 2024-01-22 23:59 | disposition home or self-care (01) ==
LOC: LAB 12:33
PROVIDERS: Visit Provider Podiatrist
DX: Z01.818 Encounter for other preprocedural examination (principal)
CPT/HCPCS: 36415; 71046; 80053; 80323; 82652; 84550; 85025; 85651; 86038; 86140; 86431; 93005; G0480

== ENCOUNTER 2024-02-21 09:01 | Day surgery (SDC) | payer MEDICAID, SELFPAY ==
[2024-02-20 11:40] VITALS: BMI 35.9
[2024-02-21] VITALS (9 sets, daily range): BP systolic 107–150; BP diastolic 61–90; PULSE 72–80; RESP 12–20; TEMP 36.1–36.6; O2SAT 92–98
[2024-02-21] MEDS: LACTATED RINGERS 1000ML 1,000 ML 25 ML IV (10:20)
[2024-02-21] MEDS: CEFAZOLIN SODIUM 2 GM in 0.9 % SODIUM CHLORIDE 100 ML IV (11:07)
--- NOTE | 2024-02-21 11:07 | EXP.ANES.CKL ---
[facility] Disclaimer: The information contained in this section may have been updated after the patient was seen, as this information can be updated by other users. Medical History Acid reflux Hypertension Surgical History H/O lateral meniscus repair of right knee Family History Other Family history of diabetes mellitus type II Social History (Updated 02/21/24 @ 10:04 by Gwendolyn Maloney RN) Smoking Status: Current every day smoker alcohol intake: never substance use type: denies use current occupational status: employed Travel in the last 8 weeks: None [facility] Anesthesia Checklist Patient Identification Patient Identification: Verbal (Name & ) Structural Data Admitted From: Home Planned Operative Procedure/s: orif l foot Consent for Planned Operative Procedure(s) Verified: Yes NPO Status Verified Time NPO: 00:00 Additional verifications Anesthesia Reactions: No Hx Blood Transfusions: No Blood Transfusion Reaction: No Airway Assessment Mallampati Score:: Class II C-Spine Mobility Assessed: Yes TMJ Mobility Assessed: Yes Dentition: Good Dentition Neurological Assessment Level of Consciousness: Awake, Alert and Appropriate Anesthesia Plan Anesthesia Risk discussed: Yes Anesthesia Plan: Verified ASA Class: II Anesthesia Type: General Preoperative Comments Pre-Operative Comments: popliteal and adductor canal block exp to pt, pt agrees to proceed
--- NOTE | 2024-02-21 13:32 | XR_ITS ---
FINAL REPORT CLINICAL HISTORY: LEFT FOOT IN OR bunion 0.29 fluoro 0.56dap FINDINGS: FLUOROSCOPY LESS THAN 1 HOUR HISTORY: Intraoperative exam of fusion hardware left foot FINDINGS: Fluoroscopic guidance was provided for visualization of fusion hardware left foot. 2 spot films were obtained. 0.29 minutes of fluoroscopy time were used, with a dosage of 0.56 DAP. IMPRESSION: As above. Reviewed, Interpreted and Dictated by Chris Craig III, MD Transcribed by Jocelyn Boudreaux Authenticated and [facility]
--- NOTE | 2024-02-21 14:10 | EXP.OP.NOTE ---
Date of procedure: 02/21/24 Pre-op Diagnosis:: Left foot osteoarthritis Left foot hallux valgus Left hammertoes Plantar plate rupture MTPJ capsulitis, metatarsalgia Post-op Diagnosis:: Same Procedure performed:: Left 1st MTPJ arthrodesis 2-3rd partial metatarsal head resection 2-3rd MTPJ capsulotomy autograft bone harvest plantar plate repair + reconstruction of angular toe deformity hammertoe repair 2-3 Surgeon:: Sahara Haider DPM FIELD COIL WINDER:: Ceasar Jerez and Ciro Hanks Anesthesia: GETA and regional (L nerve block) Estimated blood loss (mL): 30 Clinical Note:: Patient is a 48 y/o male who presents with painful left bunion deformity and hammertoe deformity. Recent imaging reviewed. Patient had a third toe dislocation several years ago and has had progressively worsening second and third plantar metatarsal, MTPJ pain since. The patient has tried modification of activity/shoe gear, taping, bunion splint/strapping, inserts, ice, elevation, NSAIDs, stretching, off loading, met pads. After a long discussion with the patient in regards to the conservative versus surgical treatment for the bunion deformity, the patient has elected to proceed with surgery because they have failed conservative treatment and continue to have pain and worsening symptoms affecting daily activities. We discussed the Lapidus versus first MPJ fusion for the MTPJ arthritis and joint pain. Discussed can remove bunion and realign joint but he may still have pain secondary to arthritis. He would rather do fusion. Discussed shortening metatarsal osteotomies versus partial metatarsal head resections for the 2-3rd mets. Discussed 2-3rd hammertoe repairs, MTPJ capsulotomy and plantar plate repair. Discussed 4-5th HT repair but pt denies pain to the area, so will hold off. The patient has been instructed on the planned procedure, all risk versus benefits of the procedure to include bleeding, infection, nerve and blood vessel damage, need for further surgery, delay in healing of soft tissue or bone, failure of bones to heal, non-union, mal-union, prolonged pain and recovery, prolonged swelling, CRPS/RSD, DVT/PE and anesthetic complications including . Discussed increased risk of wound healing complications and infection due to smoking history. Smoking cessation given. Hold off on ABIs as palpable pulses, good pedal hair growth, CFT wnl. Patient understands if there is wound complications, it could lead to infection warranting oral or IV antibiotics, gangrene necessitating toe amputation. No guarantees were given. All questions fully answered. The patient verbalized understanding and agreed to proceed with surgery.Written consent obtained. Operative findings:: Left hallux valgus deformity. Second and third digit hammertoes with dorsi flexion contracture at the MTPJ level. Fourth and fifth digit adductovarus rotation reducible. First MTPJ had cartilage wear to both the base of the proximal phalanx and the first metatarsal head. Abnormal spurring on the first metatarsal and exostosis noted from the base of the proximal phalanx. It was resected. Second and third metatarsal heads had some cortical erosion and arthritic changes noted. Significant fibrotic scar tissue noted around the MTPJ's. Second digit/MTPJ there was partial tear to the plantar plate. There was no visible plantar plate noted to the third digit/MTPJ, just scar tissue. No signs of infection. Operative note:: On this date and time patient was deemed an appropriate surgical candidate. With informed consent signed, the patient was taken to the operating theater after regional popliteal nerve block by anesthesia. Patient was positioned supine. General anesthesia was induced. IV Ancef given. Tourniquet was applied to the right mid-calf @225mmHg. The left lower extremity was prepped and draped in normal sterile fashion. Left foot calcaneal autograft bone harvest: Attention was directed to the lateral calcaneus where a stab incision was made and full-thickness dissection down to level of the bone. Utilizing an autograft bone graft harvest system 2 cc of calcaneal graft was removed and saved on the back table to pull for later use into the first MTPJ arthrodesis site. Wound flushed. Skin closed with nylon. Left first MPJ arthrodesis: The tourniquet was inflated at 225 mmHg. Attention was directed to the first MPJ where an incision was mapped out. Full-thickness dissection with care to maintain surgical hemostasis to safely retract neurovascular structures. There was severe arthritic changes noted with wearing down of the cartilage on both the metatarsal head and proximal phalanx. Dorsal as well as medial, lateral spurring noted. Sesamoids were also noted to have early arthritis. Soft tissue surrounding the first MTPJ was released. A McGlamry elevator was used to pass underneath the metatarsal heads releasing more of the contracture. Utilizing hand instrumentation in the form of ronguer, the osteophytes were removed and some of the spurs were resected. Next utilizing reamers the base of the proximal phalanx and the metatarsal head were prepared. The remaining portion of the cartilage was removed. The subchondral plate was fenestrated utilizing 1.6mm drill. Joint was prepped down to the level of good healthy cancellous bleeding bone. Rasp was used to smooth the joint and remaining spurring. The wound was flushed with copious amounts of saline. The autograft bone graft was then inserted into the joint. At this point, the joint was reduced and temporary fixation inserted. Position was checked under intra-op fluoroscopy. A 4.0mm compression lag screw was inserted from distal medial to proximal lateral. Adequate compression noted. Remaining bone graft was then inserted into the joint. Vilex 1st MTPJ locking plate was inserted in standard technique. 2.7mm screws x 3 were inserted distally into the proximal phalanx. This was followed by a 3.5mm intra-fragmentary compression screw to the proximal metatarsal, followed by 2 x 3.5mm screws. Good apposition and position was noted. X-ray confirmed position and hardware stable. The remaining portion of the autograft was packed around the fusion site. 15 blade was used to resect the redundant tissue dorsal medial. 2-0, 3-0 Vicryl was used to close deep and subcutaneous tissue in a running fashion. 3-0 Nylon was used to close skin. Skin cleansed. Left 2-3rd partial metatarsal head resection, MTPJ capsulotomy: Next an incision was mapped out over the second interspace between the second and third metatarsals. Full-thickness dissection carried down. Extensor tendon was tight and a partial lengthening was performed using a Z-lengthening fashion. MTPJ capsulotomy was performed and McGlamery elevator passed underneath the metatarsal heads releasing plantar adhesions. This did release some dorsal contracture. Due to the arthritic changes on the metatarsal heads and significant scar tissue, decision made to perform a partial metatarsal head resection. A saw was used to resect the second and third met heads, sent for pathology. Left plantar plate repair/reconstruction of angular toe deformity: Attention was then directed to the plantar plates. The second plantar plate was torn and had fibrotic scar tissue around it. The scar tissue was debrided with a 15 blade and forceps. Suture was used to repair the plantar plate. The third digit plantar plate was completely torn with no obvious plantar plate visible only fibrotic scar tissue. Left hammertoe repair 2-3: Separate incisions were mapped out over the second and third PIPJ's. Full-thickness dissection down to the level of the joint. Transverse tenotomy performed at the extensor tendon PIPJ level. The head of the proximal phalanx and base of the middle phalanx were resected to the level of healthy cancellous bleeding bone. In standard technique a hammertoe implant was inserted on both the second and third PIPJ's. Due to the significant scar tissue and lack of plantar plate, a K wire was used to reinforce the hammertoe repairs and pinned to the resected second and third metatarsals. Adequate reduction of the hammertoe deformity with reduction of the dorsal MTPJ contracture noted. Intraoperative fluoroscopy was utilized to check reduction and position of hardware and it was deemed to be appropriate and intact. All wounds were flushed with saline. Suture used to reapproximate soft tissue and perform capsular tendon balancing. Vicryl used to reapproximate subcutaneous tissue. Skin reapproximated with nylon. Application of posterior splint: The tourniquet was deflated after 120 mins and immediate hyperemic response was noted to the digits. The wounds were cleansed. Xeroform, Betadine soaked gauze, dry sterile dressing was then applied along with below knee posterior splint. The patient was awoken from anesthesia and transferred to recovery with vital signs stable and neurovascular status intact. He appeared to tolerate procedure and anesthesia well without complication. Materials: Vilex anatomic 0 degree 1st MTPJ plate and (2.7mm x3) 3.5mm locking screws x2, 3.5mm non locking screw x1, 4.0mm partially threaded compression screw x1, Hammerfuze implant (medium x1, small x1), Amniomaxx x1 (4x4cm) Discharge/Plan: D/C home today when ready and vital signs stable. Patient is to maintain dressing clean dry and intact. Ice top of left foot and elevate on two pillows. Polar pack behind knee. NWB to the LLE with DME. Rx for Oxy, Ketorolac, Gabapentin, Zofran, Motrin given. Recommend vitamin D supplement. Obtain post op films, left foot, 3 views. Follow up with me in 1 week for skin check and dressing change. Condition: stable Disposition: same day Specimens:: Left toe bone Left met head Complications:: None
--- NOTE | 2024-02-21 14:14 | P.PNANES_ITS ---
[facility] Anesthesia Record Part I Anesthesia Record I Intake, IV Amount: 1,500 Hydration: Adequate Estimated blood loss (mL): 0 Urine output (mL): 0 Blood Pressure: 150/72 SaO2: 95 Pulse Rate: 80 Airway Patency: Patent Respiratory Rate: 12 Temperature: 98 F Patient is:: Awake and Stable Stable to PACU at:: 14:10
--- NOTE | 2024-02-21 14:30 | XR_ITS ---
FINAL REPORT CLINICAL HISTORY: S/p 1st MPTJ fusion, HT2-3 COMPARISON: 05/17/2023 FINDINGS: LEFT FOOT: Three views of the left foot were obtained. A splint is present in this postop patient, which obscures bony detail. There are interval postoperative changes with an orthopedic plate and multiple screws bridging fusion of the first MTP joint. There are wires present bridging the phalangeal use into the distal metatarsals of the second and third toes. IMPRESSION: Postoperative change as described above. Reviewed, Interpreted and Dictated by Chris Craig III, MD Transcribed by Jocelyn Boudreaux Authenticated and [facility]
[2024-02-21] MEDS: diphenhydrAMINE 50MG/ML VIAL 25 MG IV (15:35)
--- NOTE | 2024-02-26 09:32 | P.PNANES_ITS ---
[facility] Anesthesia Record Part II Anesthesia Record Part II Discharge Time: 14:40 Destination: Surgical Day Care (OP Surgery) PACU nurse assessment reviewed?: Yes Patient Condition:: Good Anesthesia Complications:: None Swallowing reflex intact?: Yes Airway Patency: Patent Cyanosis?: No Blood Pressure: 129/79 SaO2: 95 Respiratory Rate: 14 Pulse Rate: 75 Temperature: 97.6 F Mental Status: Alert & Oriented Pain level:: 0 Nausea and/or vomitting:: None Intake, IV Amount: 0 Hydration: Adequate
[2024-02-26 09:33] VITALS: BP 129/79; PULSE 75; RESP 14; TEMP 36.4; O2SAT 95
== END 2024-02-21 16:10 | disposition home or self-care (01) ==
PROVIDERS: PCP Internal Medicine Adolescent Medicine; Visit Provider Podiatrist
PROC: (CPT 20900; principal; 2024-02-21 11:00)
DX: M20.12 Hallux valgus (acquired), left foot (principal); M20.42 Other hammer toe(s) (acquired), left foot; M21.612 Bunion of left foot; M77.42 Metatarsalgia, left foot; M24.175 Other articular cartilage disorders, left foot; S96.012A Strain of muscle and tendon of long flexor muscle of toe at ankle and foot level, left foot, initial encounter
CPT/HCPCS: 20900; 28220; 28270 ×2; 28285 ×2; 28750; 73620; 73630; C1713; C1776; J0690; J1100; J1200; J2250; J2405; J3010; J7120

== ENCOUNTER 2024-03-15 14:03 | Outpatient (CLI) | payer MEDICAID, SELFPAY ==
--- NOTE | 2024-03-15 14:06 | US_ITS ---
FINAL REPORT TECHNIQUE: Sonographic images of the testicles and scrotum were obtained in the longitudinal and transverse planes. CLINICAL HISTORY: ABCESS COMPARISON: 10/29/2023 FINDINGS: The right testicle measures 4.1 x 2.1 x 2.7 centimeters. There is no intratesticular mass. The previously seen focal hypoechoic abnormality has resolved. The right epididymis is within normal limits. Blood flow is present. The left testicle measures 3.7 x 2.0 x 3.1 centimeters. There is no intratesticular mass. There is a small epididymal cyst. Blood flow is present. Color imaging reveals no evidence of testicular torsion. IMPRESSION: No evidence of intratesticular mass or testicular torsion. Previously seen hypoechogenicity within the right testicle has resolved. Small left epididymal cyst. Reviewed, Interpreted and Dictated by Radha Ward MD Transcribed by Cristal Gaines Authenticated and [facility]
== END 2024-03-15 23:59 | disposition home or self-care (01) ==
LOC: RAD 14:03
PROVIDERS: PCP Internal Medicine Adolescent Medicine; Visit Provider Physician Assistant
DX: N45.4 Abscess of epididymis or testis (principal)
CPT/HCPCS: 76870

== ENCOUNTER 2024-03-21 07:08 | Outpatient (CLI) | payer MEDICAID, SELFPAY ==
--- NOTE | 2024-03-21 07:13 | XR_ITS ---
FINAL REPORT CLINICAL HISTORY: Postoperative COMPARISON: 02/21/2024 FINDINGS: LEFT FOOT Three views of the left foot demonstrate a sideplate and screw securing the first metatarsal phalangeal joint. There are K wires in the second and third digit rays. Overlying cast has been removed. The soft tissues are unremarkable. IMPRESSION: Stable hardware. Interval removal of cast. Reviewed, Interpreted and Dictated by Dany Mohamud MD Transcribed by Sweta Rosales Authenticated and [facility]
--- NOTE | 2024-03-21 09:05 | CA_ITS ---
FINAL REPORT TECHNIQUE: Ultrasound images of the deep venous system were obtained from the left groin to the calf veins. CLINICAL HISTORY: S/P LT FOOT SUREGERY 02/21/24,PT HAS BEEN IN BOOT NON-WEIGHT BEARING SINCE,PAIN IN LEFT CALF COMPARISON: None FINDINGS: The left gastrocnemius vein is distended measuring 1 cm in diameter and thrombosed. IMPRESSION: Distended and thrombosed left gastrocnemius vein. Reviewed, Interpreted and Dictated by Dany Mohamud MD Transcribed by Sweta Rosales Authenticated and [facility]
== END 2024-03-21 23:59 | disposition home or self-care (01) ==
PROVIDERS: PCP Internal Medicine Adolescent Medicine; Visit Provider Podiatrist
DX: G89.18 Other acute postprocedural pain (principal); R60.9 Edema, unspecified; Z98.890 Other specified postprocedural states
CPT/HCPCS: 73630; 93971

== ENCOUNTER 2024-04-04 09:50 | Outpatient (CLI) | payer MEDICAID, SELFPAY ==
--- NOTE | 2024-04-04 09:53 | XR_ITS ---
FINAL REPORT CLINICAL HISTORY: Left Foot Postoperative fusion COMPARISON: None FINDINGS: LEFT FOOT Three views of the left foot demonstrate a sideplate and screws securing the 1st MTP joint. Orthopedic screws are noted securing the 2nd and 3rd PIP joints. no acute fracture or dislocation. The visualized joint spaces are normally aligned. The soft tissues are unremarkable. IMPRESSION: Postoperative changes without acute bony abnormality. Reviewed, Interpreted and Dictated by Dany Mohamud MD Transcribed by Sweta Rosales Authenticated and [facility]
== END 2024-04-04 23:59 | disposition home or self-care (01) ==
LOC: RAD 09:51
PROVIDERS: PCP Internal Medicine Adolescent Medicine; Visit Provider Podiatrist
DX: M79.672 Pain in left foot (principal)
CPT/HCPCS: 73630

== ENCOUNTER 2024-05-09 10:00 | Outpatient (RCR) | payer MEDICAID, SELFPAY ==
--- NOTE | 2024-04-23 11:03 | HMH.PTOPEV ---
PT Outpatient Evaluation Rehab PT Outpatient Evaluation Start: 04/23/24 10:28 Freq: Status: Active Protocol: Document 04/23/24 10:28 BINDU (Rec: 04/23/24 11:03 BINDU [id number]) E-signed By Benigno Collins, PT Outpatient Therapy Subjective History Subjective History The patient is a 49yom who is s/p L foot surgery performed on 02/21/2024. Per operative report, pt underwent Left 1st MTPJ arthrodesis, 2-3rd partial metatarsal head resection, 2-3rd MTPJ capsulotomy, autograft bone harvest, plantar plate repair + reconstruction of angular toe deformity, hammertoe repair 2-3. As of 04/04/2024, the patient was FWB in a walking boot. As of 04/18/2024, pt is allowed to begin weaning from walking boot into wide- based shoe, per PT's guidance. Pt reports that at this point , his biggest issue the swelling. He reports that he has attempted to put on a tennis shoe but his shoe does not fit. He reports that he is only having a little bit of pain at this point. He reports that he had a DVT in late February and is currently taking Eliquis. The pt denies any other pertinent PMH. New diagnosis of cancer in past 12 No months? Chief Complaint Pain,Stiff,Swelling Symptom Type Ache Symptoms Relieved By Ice,Elevation Symptoms Aggravated By Standing,Walking Prior Functional Limitations None Current Functional Limitations Driving,Standing,Squatting, Walking,Stairs,Balance Symptom Description Intermittent,Activity Dependent Level of pain today (0-10) 1 Pain scale - at its best (0-10) 3 Pain scale - at its worst (0-10) 5 Ankle/Foot Eval Gait Observation General Gait Pattern Observation Antalgic Gait,Decrease Weight Bear (L),Decrease Stride Lngth (R) Assistive Device Ambulation Assistive Device None Palpation Tenderness left Ankle/Foot Palpation Findings Tenderness Ankle/Foot Palpation Overall Comment 2/4 to willie-incision ROM Ankle/Foot Dorsiflexion w/Knee Extended 10 Active Range Motion (degrees) Ankle/Foot Dorsiflexion w/Knee Extended 14 Passive Range (degrees) Ankle/Foot Plantar Flexion Active Range 25 of Motion (degrees) Ankle/Foot Plantar Flexion Passive Range 30 of Motion (degrees) Ankle/Foot Eversion Active Range of 20 Motion (degrees) Ankle/Foot Eversion Passive Range of 22 Motion (degrees) Ankle/Foot Inversion Active Range of 15 Motion (degrees) Ankle/Foot Inversion Passive Range of 18 Motion (degrees) Ankle/Foot ROM Limitations Soft Tissue Tightness,Pain MMT Ankle Dorsiflexion Strength Grade 2+ Poor+ Ankle Plantarflexion Strength Grade 2+ Poor+ Foot Eversion Strength Grade 2+ Poor+ Foot Inversion Strength Grade 2+ Poor+ Lower Extremity Functional Index Activities Today, do you or would you have any difficulty at all with: a.Any of your usual work, housework or Quite a bit of difficulty school activities b. Your usual hobbies, recreational or Quite a bit of difficulty sporting activities c. Getting into or out of the bath A little bit of difficulty d. Walking between rooms No difficulty e. Putting on your shoes or socks Extreme difficulty or unable to perform activity f. Squatting Quite a bit of difficulty g. Lifting an object, like a bag of No difficulty groceries from the floor h. Performing light activities around No difficulty your home i. Performing heavy activities around Moderate difficulty your home j. Getting into or out of a car A little bit of difficulty k. Walking 2 blocks No difficulty l. Walking a mile No difficulty m. Going up or down 10 stairs (about 1 A little bit of difficulty flight of stairs) n. Standing for 1 hour No difficulty o. Sitting for 1 hour No difficulty p. Running on even ground Extreme difficulty or unable to perform activity q. Running on uneven ground Extreme difficulty or unable to perform activity r. Making sharp turns while running fast Extreme difficulty or unable to perform activity s. Hopping Extreme difficulty or unable to perform activity t. Rolling over in bed Quite a bit of difficulty LEFI Score Lower Extremity Functional Index Score 43 Miscellaneous Dx PT Eval Objective Objective Circumferential Measurement: - Forefoot: 27cm - Midfoot 30.1 cm - Hindfoot: 34.4 cm Outpatient Therapy Assessment Impairments Problems/Impairmments Palpation Tenderness,Impaired Range of Motion,Impaired Strength,Impaired Gait Pattern ,Impaired Walking,Impaired Household Care,Impaired Stair Climbing,Subjective C/O Pain Prognosis Rehab Potential Good Clinical Impression Consistent with Diagnosis Yes Additional details: Pt would benefit from skilled PT to improve left ankle ROM, strength, balance, walking and functional mobilities in order to address above impairments, improve quality of life and promote a return to his PLOF. Short Term Goals Number of Weeks 4 Decreased Palpation Tenderness Yes: 1 to TTP Assessment Increase Range of Motion Yes: 75% WNL AROM of L ankle Increase Strength Yes: 3+/5 to L ankle Improve Gait Pattern without Assistive Yes: Normalized Gait Pattern Device Improve LEFI Score Yes: to 52 Decrease Edema Yes: by 5% total Decrease Subjective C/O Pain Yes: 05/20 with above activiites Patient to be Ind w/ HEP Yes Donor Processor Goals Number of Weeks 8 Decreased Palpation Tenderness Yes: 0/4 to TTP Assessment Increase Range of Motion Yes: 75-100% AROM of L ankle Increase Strength Yes: 4-4+/5 to L ankle Improve LEFI Score Yes: to 61 Decrease Subjective C/O Pain Yes: 03/22 to L ankle Patient to be Ind w/ Advanced HEP Yes Outpatient Therapy Plan of Care Treatment Plan May Include Therapeutic Exercise Including Home Yes Exercise Program Manual Therapy Techniques Yes Neuromuscular Re-education Yes Therapeutic Activities to Return to Yes Previous Functional/Work Level Gait Training Yes ADL/Self Care Education Yes Thermal Modalities Yes Electrical Stimulation Yes Ultrasound/Phonophoresis Yes Iontophoresis Yes Manual Lymphatic Drainage Yes Eval/Re-Eval Yes Frequency Times per week 2 Duration Number of Weeks 8 Addendums This patient is a candidate for social No or vocational rehab? Patient/Guardian verbally acknowledges Yes understanding of treatment program and consents to further treatment? Patient/Guardian verbally acknowledges Yes understanding of diagnosis, prognosis and goals for treatment? Eval Complexity PT Charges 89499 - Moderate Complexity Shoulder/Elbow Eval Shoulder Objective Measurements Elbow Objective Measurements PHYSICIAN CERTIFICATION: I certify the specified therapy services for Ortiz Harvey are required, authorized, and reviewed every 30 days.
== END 2024-05-09 23:59 | disposition home or self-care (01) ==
LOC: PT 10:00
PROVIDERS: Visit Provider Podiatrist
DX: R60.9 Edema, unspecified (principal); G89.18 Other acute postprocedural pain; Z98.890 Other specified postprocedural states
CPT/HCPCS: 97110; 97140; 97163; 97530

== ENCOUNTER 2024-05-21 13:58 | Outpatient (CLI) | payer MEDICAID, SELFPAY ==
--- NOTE | 2024-05-21 14:00 | XR_ITS ---
FINAL REPORT TECHNIQUE: Left foot 3 views CLINICAL HISTORY: foot pain COMPARISON: None FINDINGS: LEFT FOOT: 3 images of the left foot were obtained. There is an orthopedic sideplate and screws bridging the first MTP joint, stable since the prior exam. There are also orthopedic screws fusing the second and third PIP joints, also unchanged. There appears to have been partial resection of the articular surfaces of the heads of the second and third metatarsals. There is no evidence of fracture or dislocation. The joint spaces are intact. There is no soft tissue abnormality identified. IMPRESSION: No acute bony abnormality. Postoperative change as described above, stable. Reviewed, Interpreted and Dictated by Dany Mohamud MD Transcribed by Jocelyn Boudreaux Authenticated and [facility]
== END 2024-05-21 23:59 | disposition home or self-care (01) ==
LOC: RAD 13:59
PROVIDERS: PCP Internal Medicine Adolescent Medicine; Visit Provider Podiatrist
DX: G89.18 Other acute postprocedural pain (principal); M79.672 Pain in left foot; Z98.890 Other specified postprocedural states
CPT/HCPCS: 73630

== ENCOUNTER 2024-05-21 15:00 | Outpatient (RCR) | payer MEDICAID, SELFPAY | END 2024-05-21 23:59 | disposition home or self-care (01) | LOC: PT 15:00 | PROVIDERS: Visit Provider Podiatrist | DX: R60.9 Edema, unspecified (principal); G89.18 Other acute postprocedural pain; Z98.890 Other specified postprocedural states | CPT/HCPCS: 97110; 97140; 97530 ==

== ENCOUNTER 2024-06-14 06:53 | Outpatient (CLI) | payer MEDICAID, SELFPAY ==
--- NOTE | 2024-06-14 07:00 | CT_ITS ---
FINAL REPORT TECHNIQUE: Thin section axial CT images with coronal and sagittal reformats were performed. This study was performed with techniques to keep radiation doses as low as reasonably achievable (ALARA). Individualized dose reduction techniques using automated exposure control or adjustment of mA and/or kV according to the patient''s size were employed. CLINICAL HISTORY: eval for non-union, hardware loosening, FINDINGS: CT LEFT FOOT WITHOUT CONTRAST There is surgical fusion of the first metatarsophalangeal joint as well as the 2nd and 3rd proximal interphalangeal joints. There is no fracture. Bony union is noted at the first MTP joint without hardware abnormality. There is partial bony union of the second PIP joint without hardware abnormality. There is no bony union of the third PIP joint. There is no hardware abnormality. There is flattening of the 2nd and 3rd metatarsal heads which could be postoperative or related to trauma or AVN. Scattered degenerative changes are noted. There is an unstable appearing osteochondral fragment in the medial talar dome measuring 11 mm. IMPRESSION: Fusion without hardware abnormality of the first MTP joint. Partial fusion of the second PIP joint with lack of bony fusion of the third PIP joint. Unstable appearing osteochondral fragment in the medial talar dome. Reviewed, Interpreted and Dictated by Sari Tristan MD Transcribed by Radha Brown Authenticated and . [facility]
== END 2024-06-14 23:59 | disposition home or self-care (01) ==
LOC: RAD 06:54
PROVIDERS: PCP Internal Medicine Adolescent Medicine; Visit Provider Podiatrist
DX: G89.18 Other acute postprocedural pain (principal); Z98.890 Other specified postprocedural states; Z96.9 Presence of functional implant, unspecified
CPT/HCPCS: 73700

== ENCOUNTER 2024-08-22 09:46 | Outpatient (CLI) | payer MEDICAID, SELFPAY ==
--- NOTE | 2024-08-22 09:48 | CT_ITS ---
FINAL REPORT TECHNIQUE: Thin section axial images were obtained from the lung apices to the upper abdomen by computed tomography. Reformatted images were obtained and reviewed. This study was performed with techniques to keep radiation doses al low as reasonably achievable (ALARA). Individualized dose reduction techniques using automated exposure control or adjustment of mA and/or kV according to the patient's size were employed. CLINICAL HISTORY: Who quit 6 months ago, [id number] history SCREENING former smoker stopped feb 2024 smoked 1 ppd x 30 years COMPARISON: None FINDINGS: CHEST CT LOW DOSE 50-year-old male, former smoker who quit 6 months ago, 51-dbou-lnkp history CTDI vol (mGy): 2.90 DLP (mGy-cm): 106.29 There is no axillary adenopathy. There is no mediastinal or hilar mass or adenopathy. The heart is normal in size. There is no pericardial or pleural effusion. Lung window images demonstrate 2 nodules in the right lower lung field along the major fissure. The more superior nodule measures 4 mm in size, is best seen on image #42 of series 4. The more anterior and inferior nodule measures 3 mm in size, best seen on image #44 of series 4. No other nodules are identified. Limited images of the upper abdomen are unremarkable. IMPRESSION: Lung-RADS category 2. Recommend 12 month follow up low dose chest CT. Reviewed, Interpreted and Dictated by Dany Mohamud MD Transcribed by Jocelyn Boudreaux Authenticated and [facility]
--- OUTSIDE RECORDS SUMMARY | 2024-08-22 09:53 | XMS_ITS | Clinical Summary ---
Author Organization [facility] Address [address] [place] [address] Phone Care Team Providers Care Market Superintendent Name Role Phone Unavailable Primary Care Provider Unavailabl e Social History Tobacco Use Types Packs/Day Years Used Date Smoking Tobacco: Never Assessed Sex and Gender Information Value Date Recorded Sex Assigned at Not on file Legal Sex Male 12:59 AM EDT Gender Identity Not on file Sexual Orientation Not on file Plan of Treatment Health Maintenance Due Date Last Done Comments Annual Wellness Exam 02/05/1976 DTaP/TDaP/Td (1 - Tdap) 02/05/1992 Hepatitis B Vaccine (1 of 3 - 19+ 3-dose series) 02/05/1992 Cologuard 2018 Colon Cancer Screening 2018 Colonoscopy 2018 FIT 2018 Sigmoidoscopy 2018 Virtual Colonography 2018 Pneumococcal Vaccine 50+ (1 of 1 - PCV) 2023 Zoster (1 of 2) 2023 COVID-19 Vaccine (1 - 2023-2 5 season) 2023 Influenza Vaccine (Season Ended) 2024 Meningococcal B Vaccine Aged Out No l onger eligible based on patient's age to complete this topic Insurance [facility] [id number]
--- OUTSIDE RECORDS SUMMARY | 2024-08-22 09:53 | XMS_ITS | Clinical Summary ---
Author Organization [facility] Address [address] [place] [address] Care Team Providers Care Mold Puller Name Role Phone Pcp, No Primary Care Provider Unavailabl e Allergies Active Allergy Reactions Criticality Noted Date Comments Shellfish Allergy Nausea,Vomiting Medium 10/30/2023 Medications ibuprofen 600 MG tablet 1 tablet (600 mg). Active gabapentin (Neurontin) 100 MG capsule TAKE ONE CAPSULE BY MOUTH THREE TIMES DAILY NEEDED FOR nerve pain MAY CAUSE DROWSINESS Active Eliquis 5 MG tablet TAKE TWO TABLETS BY MOUTH TWICE DAILY FOR 7 DAYS, THEN TAKE ONE TABLET BY MOUTH TWICE DAILY Active carvedilol (Coreg) 12.5 MG tablet Take 1 tablet (12.5 mg) by mouth 2 (two) times a day. Active Active Problems Problem Noted Date Diagnosed Date Acquired pes planus of left foot 03/25/2024 Capsulitis of metatarsophalangeal (MTP) joint of left foot 03/25/2024 Dislocation of toe of left foot 03/25/2024 Chronic pain of both feet 03/25/2024 Gastrocnemius equinus of left lower extremity Internal derangement of right knee 03/25/2024 Osteoarthritis of feet, bilateral 03/25/2024 Obesity, Class II, BMI 35-39.9 03/25/2024 Pes anserinus bursitis of right knee 03/25/2024 Osteochondral defect of talus 03/25/2024 Essential (primary) hypertension 02/15/2024 Bunion of left foot 02/01/2024 Acquired hallux valgus of left foot 12/18/2023 Injury of plantar plate of left foot 12/18/2023 Metatarsalgia of left foot 12/18/2023 Abscess of epididymis or testis 12/11/2023 Epididymo-orchitis 12/11/2023 Testicular abscess 10/30/2023 Right testicular pain 10/30/2023 Right lower quadrant pain 10/29/2023 Other chronic pain 05/30/2023 Chondromalacia, right knee 03/27/2023 Tear of medial meniscus of right knee, current 0 03/27/2023 Overview (03/25/2024): s/p Right KS with PMM and plica excision Family History Medical History Relation Name Comments No Known Problems Father Diabetes Mother Relation Name Status Comments Father Mother Social History Tobacco Use Types Packs/Day Years Used Date Smoking Tobacco: Every Day Cigarettes Smokeless Tobacco: Never Tobacco Cessation:Ready to Q uit: Not Asked; Counseling Given: Not Answered Alcohol Use Standard Drinks/Week Comments Never 0 (1 standard drink = 0.6 oz pur e alcohol) Humiliation, Afraid, Rape, and Kick questionnair e Answer Date Recorded Within the last year, have y ou been afraid of your partner or ex-partner? No 10/30/2023 Within the last year, have y ou been humiliated or emotionally abused in other ways by your partner or ex-partner? No Within the last year, have y ou been kicked, hit, slapped, or otherwise physically hurt by your partner or ex-partner? No 10/30/2023 Within the last year, have y ou been raped or forced to have any kind of sexual activity by your partner or ex-partner? No 10/30/2023 PHQ-2 Answer Date Recorded Patient Health Questionnaire-2 Score 0 03/25/2024 Hunger Vital Sign Answer Date Recorded Within the past 12 months, y ou worried that your food would run out before you got the money to buy more. Never true 10/30/19 24 Within the past 12 months, t he food you bought just didn't last and you didn't have money to get more. Never true 10/30/2023 PRAPARE - Transportation Answer Date Re corded In the past 12 months, has l ack of transportation kept you from medical appointments or from getting medications? No 10/11 In the past 12 months, has l ack of transportation kept you from meetings, work, or from getting things needed for daily living? No 10/30/2023 Housing Stability Vital Sign Answer Bobo e Recorded In the last 12 months, was t here a time when you were not able to pay the mortgage or rent on time? No 10/30/2023 In the last 12 months, how many places have you lived? 1 10/30/2023 In the last 12 months, was t here a time when you did not have a steady place to sleep or slept in a retirement (including now)? No 10/30/2023 Utilities Answer Date Recorded In the past 12 months has th e electric, gas, oil, or water company threatened to shut off services in your home? No 10/30/2023 Sex and Gender Information Value Date Recorded Sex Assigned at Not on file Legal Sex Male 11:03 PM EDT Gender Identity Not on file Sexual Orientation Not on file Last Filed Vital Signs Vital Sign Reading Time Taken Comments Blood Pressure 131/84 12/11/2023 2:13 PM EDT Pulse 80 12/11/2023 2:13 PM EDT Temperature 36.7 C (98.1 F) 12/11/2023 2:13 PM EDT Respiratory Rate 18 12/11/2023 2:13 PM EDT Oxygen Saturation 97% 12/11/2023 2:13 PM EDT Inhaled Oxygen Concentration - - Weight 105 kg (232 lb) 03/25/2024 11:57 AM EST Height 172.7 cm (5' 8 ) 03/25/2024 11:57 AM EST Body Mass Index 35.28 03/25/2024 11:57 AM EST Plan of Treatment Health Maintenance Due Date Last Done Comments [facility]-/Child/Adol SDOH Screenings 1973 [facility]-DTaP,Tdap,and Td Vaccines (1 - Tdap) 02/05/1992 [facility]-Hepatitis B Vaccines (1 of 3 - 19+ 3-dose series) 02/05/1992 [facility]-Pneumococcal Vaccine: 50+ Years (1 of 2 - PCV) 02/05/1992 CT Colonography 2018 Colonoscopy 2018 FIT-DNA 2018 FIT 2018 FOBT 2018 Sigmoidoscopy 2018 [facility]-Colorectal Cancer Screening 2018 [facility]-Zoster Vaccines (1 of 2) 2023 [id number] Vaccine (3 - season) 2023 12/18/2020, 11/19/2020 [facility]- SDOH Screenings 05/01/2024 [facility]-Adult SDOH Screenings 05/01/2024 10/30/2023 [facility]-Influenza Vaccine (Season Ended) 2024 [facility]-Depression Screening 03/25/2025 03/25/2024 [facility]-HIV Screening Completed 10/30/2023 [facility]-Hepatitis C Screening Completed 10/30/2023 [facility]-Obesity Intervention Completed 025, 12/11/2023, 10/29/2023, Additional history exists HPV Vaccines Aged Out No longer eligi ble based on patient's age to complete this topic [facility]-HIB Vaccines Aged Out No longer e ligible based on patient's age to complete this topic [facility]-Hepatitis A Vaccines Aged Out No longer eligible based on patient's age to complete this topic [facility]-IPV Vaccines Aged Out No longer e ligible based on patient's age to complete this topic [facility]-Rotavirus Vaccines Aged Out No lo nger eligible based on patient's age to complete this topic Procedures Procedure Name Priority Date/Time Associated Diagnosis Comments HEPATITIS C ANTIBODY - ED W/REFLEX TO HCV QUANT PCR STAT 10/30/2023 2:49 AM EDT ED HIV 1/2 ANTIBODY/ANTIGEN SCREEN WITH REFLEX TO HIV I/II DIFFERENTIATION STAT 10/30/2023 2:49 AM EDT from Last 3 Months or Most Recently Relevant to Health Maintenance Results * ED HIV 1/2 Antibody/Antigen Screen w/Reflex to HIV 1/2 Differentiation (10/30/2023 2:49 AM EDT) HIV 1 & 2 Antibody/Antigen Screen Non Reactive Non Reactive 10/30/2023 3:44 AM EDT [facility] Comment:Screening for HIV 1 & 2 antibodies, and P24 antigen is NONREACTIVE. No confirmatory testing is required. Blood Venous blood specimen / Unknown Venipuncture / Unknown 10/30/2023 2:49 AM EDT 10/30/2023 3:00 AM EDT Result Miguel [facility] BLOOD ORDERABLES Final Resul t Performing Organization Address City/[facility]/ZIP Co de Phone Number [facility] [address] [place] [address] * Hepatitis C Antibody - ED (10/30/2023 2:49 AM EDT) Hepatitis C Antibody Negative Negative 10/30/2023 3:49 AM EDT [facility] Blood Venous blood specimen / Unknown Venipuncture / Unknown 10/30/2023 2:49 AM EDT 10/30/2023 3:02 AM EDT Result Miguel Snell LAB BLOOD ORDERABLES Final Resul t Performing Organization Address City/[facility]/ZIP Co de Phone Number [facility] [address] [place] [address] from Last 3 Months or Most Recently Relevant to Health Maintenance Insurance [facility] MEDICA[facility] Advance Directives * Full Code (Latest Code Status on File) Date Activated Date Inactivated Comments 10/30/2023 4:13 AM 10/31/2023 10:39 AM Question Answer Comments Patient has decision-making capacity? Yes Care Teams Mold Puller Relationship Specialty Start Date End Date Pcp, No [address] [place] [address] PCP - General Family Medicine 10/30/23
== END 2024-08-22 23:59 | disposition home or self-care (01) ==
LOC: RAD 09:47
PROVIDERS: PCP Internal Medicine Adolescent Medicine; Visit Provider Internal Medicine Adolescent Medicine
DX: Z12.2 Encounter for screening for malignant neoplasm of respiratory organs (principal); R91.8 Other nonspecific abnormal finding of lung field; Z87.891 Personal history of nicotine dependence
CPT/HCPCS: 71271

== ENCOUNTER 2025-02-18 11:46 | Outpatient (CLI) | payer MEDICAID, SELFPAY ==
--- NOTE | 2025-02-18 11:50 | XR_ITS ---
FINAL REPORT TECHNIQUE: Left foot 3 views CLINICAL HISTORY: 1 year post-op evaluation. pt has had pain the past 6 weeks. dislocated 3rd digit 2 years ago. COMPARISON: None FINDINGS: LEFT FOOT: 3 views of the left foot were obtained. There is a sideplate and screws bridging the first metatarsal phalangeal joint. There is also evidence of fusion of the 2nd and 3rd PIP joints. There has been resection of the distal 2nd and 3rd heads of the metatarsals. No acute osseous abnormality is identified. IMPRESSION: Postoperative changes of the left foot as described, without acute osseous abnormality. Reviewed, Interpreted and Dictated by Dany Mohamud MD Transcribed by Jocelyn Boudreaux Authenticated and . [facility]
== END 2025-02-18 23:59 | disposition home or self-care (01) ==
LOC: RAD 11:46
PROVIDERS: PCP Internal Medicine Adolescent Medicine; Visit Provider Podiatrist
DX: M79.672 Pain in left foot (principal); Z96.698 Presence of other orthopedic joint implants; Z98.890 Other specified postprocedural states
CPT/HCPCS: 73630

== ENCOUNTER 2025-03-04 11:47 | Outpatient (CLI) | payer MEDICAID, SELFPAY ==
--- NOTE | 2025-03-04 11:49 | XR_ITS ---
FINAL REPORT TECHNIQUE: Left toes 3 views CLINICAL HISTORY: Evaluation of left toe pain COMPARISON: 02/18/2025 FINDINGS: LEFT TOES: 3 images of the left toes were obtained. There is evidence of prior surgical arthrodesis of the first MTP joint, and the 2nd and 3rd PIP joints, stable. There has been partial resection of the heads of the 2nd and 3rd metatarsals, also stable in appearance. There is no evidence of acute fracture or dislocation. The joint spaces are intact. There is no soft tissue abnormality identified. IMPRESSION: No acute bony abnormality, with no significant change since the prior exam of 02/18/2025. Reviewed, Interpreted and Dictated by Sari Tristan MD Transcribed by Jocelyn Boudreaux Authenticated and [facility]
--- OUTSIDE RECORDS SUMMARY | 2025-03-04 11:49 | XMS_ITS | Clinical Summary ---
Author Organization [facility] Address [address] [place] [address] Phone Care Team Providers Care Touring Production Manager Name Role Phone Unavailable Primary Care Provider [...] of 2) 2023 COVID-19 Vaccine (1 - 2024-2 6 season) 2024 Influenza Vaccine (#1) 2024 Meningococcal B Vaccine Aged Out No l onger eligible based on patient's age to complete this topic Insurance [facility] [id number]
--- OUTSIDE RECORDS SUMMARY | 2025-03-04 11:49 | XMS_ITS | Clinical Summary ---
Author Organization [facility] Address [address] [place] [address] Care Team Providers Care Gifts Officer Name Role Phone Pcp, No Primary Care [...] place to sleep or slept in a skilled nursing (including now)? No 10/30/2023 Utilities Answer Date [...] Last Done Comments [facility]-/Child/Adol SDOH Screenings 1973 [facility]- SDOH Screenings 1991 [facility]-Adult SDOH Screenings 1991 [facility]-DTaP,Tdap,and Td Vaccines (1 - Tdap) 02/05/1992 [facility]-Hepatitis B Vaccines (1 of 3 - 19+ 3-dose series) 02/05/1992 [facility]-Pneumococcal Vaccine: 50+ Years (1 of 2 - PCV) 02/05/1992 CT Colonography 2018 Colonoscopy 2018 FIT-DNA 2018 FIT 2018 FOBT 2018 Sigmoidoscopy 2018 [facility]-Colorectal Cancer Screening 2018 [facility]-Zoster Vaccines (1 of 2) 2023 [id number] Vaccine (3 - season) 2024 12/18/2020, 11/19/2020 [facility]-Influenza Vaccine (#1) 2024 [facility]-Depression Screening 03/25/2025 03/25/2024 [facility]-HIV Screening Completed 10/30/2023 [facility]-Hepatitis C Screening Completed 10/30/2023 [facility]-Obesity Intervention Completed 025, 12/11/2023, 10/29/2023, Additional history exists HPV Vaccines (No Doses Required) Completed [facility]-HIB Vaccines Aged Out No longer e [...] Reactive Non Reactive 10/30/2023 3:44 AM EDT [facility] Comment:Screening for HIV 1 & 2 antibodies, and P24 antigen is NONREACTIVE. No confirmatory testing is required. Blood Venous blood specimen / Unknown Venipuncture / Unknown 10/30/2023 2:49 AM EDT 10/30/2023 3:00 AM EDT us [facility]ma [facility] BLOOD ORDERABLES Final Resul t [facility] [address] [place] [address] * Hepatitis C Antibody - ED (10/30/2023 2:49 AM EDT) Hepatitis C Antibody Negative Negative 10/30/2023 3:49 AM EDT [facility] Blood Venous blood specimen / Unknown Venipuncture / Unknown 10/30/2023 2:49 AM EDT 10/30/2023 3:02 AM EDT us Karma [facility] BLOOD ORDERABLES Final Resul t Performing Organization Address City/[facility]/ZIP Co de Phone Number [facility] [address] [place] [address] from Last 3 Months or Most Recently Relevant to Health Maintenance Insurance [employer] [address] Advance Directives * Full Code (Latest Code Status on File) Date Activated Date Inactivated Comments 10/30/2023 4:13 AM 10/31/2023 10:39 AM Question Answer Comments Patient has decision-making capacity? Yes Care Teams Gifts Officer Relationship Specialty Start Date End Date Pcp, No [address] [place] [address] PCP - General Family Medicine 10/30/23
== END 2025-03-04 23:59 | disposition home or self-care (01) ==
LOC: RAD 11:47
PROVIDERS: PCP Internal Medicine Adolescent Medicine; Visit Provider Podiatrist
DX: G89.18 Other acute postprocedural pain (principal); Z98.1 Arthrodesis status
CPT/HCPCS: 73660